=== PATIENT | female | born 1935 | race Caucasian/White ===

== ENCOUNTER 2020-02-07 13:27 | Inpatient (IN) | payer MEDICARE, OTHER ==
[~2020-02-07] VITALS: Ht 154.9 cm; Wt 79.4 kg
[2020-02-08] MEDS ORDERED: GLUCERNA 1.2 1000ML LIQUID GT PRN (16:45)
[2020-02-08] MEDS ORDERED: BISA10SU61 RC (17:07)
[2020-02-08] MEDS ORDERED: OXYC-133 PO (17:07)
[2020-02-08] MEDS ORDERED: CALC1TAB91 GT (17:07)
[2020-02-08] MEDS ORDERED: ACET-2154 GT (17:07)
[2020-02-08] MEDS ORDERED: PANT40TA2 GT (17:07)
[2020-02-08] MEDS ORDERED: POLY17PO4 GT (17:07)
[2020-02-08] MEDS ORDERED: ASPI81TA31 GT (17:07)
[2020-02-08] MEDS ORDERED: MULT-594 GT (17:07)
[2020-02-08] MEDS ORDERED: MAGN400O6 GT (17:07)
[2020-02-08] MEDS ORDERED: IPRA0.2S48 NEB (17:07)
[2020-02-08] MEDS ORDERED: LOSA50TA39 GT (17:07)
[2020-02-08] MEDS ORDERED: NA P133E RC (17:07)
[2020-02-08] MEDS ORDERED: ATOR40TA GT (17:07)
[2020-02-08] MEDS ORDERED: OXYC-128 GT (17:07)
[2020-02-08] MEDS ORDERED: FERR325T28 GT (17:07)
[2020-02-08] MEDS ORDERED: CLOP75TA15 GT (17:07)
[2020-02-08] MEDS ORDERED: CYAN-51 GT (17:07)
[2020-02-08] MEDS ORDERED: FURO-151 GT (17:07)
[2020-02-08] MEDS ORDERED: POTA10CA43 GT (17:07)
[2020-02-08] MEDS ORDERED: NITR0.4T SL (17:08)
[2020-02-08 18:01] VITALS: BP 146/57
[2020-02-08] MEDS ORDERED: DEXTROSE 50% 50 ML DISP.SYRIN IV PRN (19:15)
[2020-02-08] MEDS: BLOOD SUGAR DIAGNOSTIC 1 EACH STRIP VI SCH (20:33)
[2020-02-08] MEDS: INSULIN REGULAR, HUMAN 300 UNIT/3 ML VIAL SQ PRN (20:39)
[2020-02-08 21:22] VITALS: BP 144/69
[2020-02-08] MEDS ORDERED: FLEET ENEMA 133 ML BOTTLE RC PRN (22:45)
[2020-02-08] MEDS ORDERED: ACETAMINOPHEN 325 MG TABLET GT PRN (22:45)
[2020-02-08] MEDS ORDERED: BISACODYL 10 MG SUPP.RECT RC PRN (22:45)
[2020-02-08] MEDS ORDERED: NITROGLYCERIN 0.4 MG/TAB BOTTLE SL PRN (22:45)
[2020-02-08] MEDS ORDERED: MAGNESIUM HYDROXIDE 30 ML LIQUID UDC GT PRN (22:45)
[2020-02-08] MEDS ORDERED: IPRATROPIUM BROMIDE 0.5 MG/2.5 ML NEBU NEB PRN (22:45)
[2020-02-08] MEDS ORDERED: OXYCODONE HCL 5 MG TABLET GT PRN (23:30)
[2020-02-08] MEDS ORDERED: OXYCODONE/APAP 5-325 MG TABLET GT PRN (23:30)
[2020-02-09 05:18] VITALS: BP 136/50
[2020-02-09 06:20] LABS: BASOPHILS % (AUTO) 0.8 % (0.0-2.0); EOSINOPHILS # (AUTO) 0.2 K/uL (0.0-0.7); EOSINOPHILS % (AUTO) 4.4 % (0.0-7.0); HEMATOCRIT 29.5 % (31.2-41.9); HEMOGLOBIN 9.9 g/dL (10.9-14.3); LYMPHOCYTES # (AUTO) 1.5 K/uL (20.0-40.0); LYMPHOCYTES % (AUTO) 30.8 % (20.5-51.5); MEAN CORPUSCULAR HEMOGLOBIN 27.4 uug (24.7-32.8); MEAN CORPUSCULAR HGB CONC 34 g/dL (32.3-35.6); MEAN CORPUSCULAR VOLUME 81.7 fL (75.5-95.3); MONOCYTES # (AUTO) 0.4 K/uL (2.0-10.0); MONOCYTES % (AUTO) 7.8 % (0.0-11.0); NEUTROPHILS # (AUTO) 2.7 K/uL (1.8-8.9); NEUTROPHILS % (AUTO) 56.2 % (38.5-71.5); PLATELET COUNT (AUTO) 153 K/uL (179-408); RED BLOOD CELL COUNT(AUTO) 3.62 MIL/uL (3.63-4.92); WHITE BLOOD COUNT (AUTO) 4.9 K/uL (3.8-11.8)
[2020-02-09] MEDS: BLOOD SUGAR DIAGNOSTIC 1 EACH STRIP VI SCH ×2 (06:27→11:30)
[2020-02-09 06:40] LABS: THYROID STIMULATING HORMONE 0.676 mIU/mL (0.358-3.740)
[2020-02-09 06:47] LABS: BILIRUBIN,TOTAL 0.3 mg/dL (0.2-1.0); CREATININE 0.7 mg/dL (0.6-1.3); MAGNESIUM 2.2 mg/dL (1.8-2.4); PHOSPHOROUS 4.6 mg/dL (2.5-4.9); POTASSIUM 3.9 mmol/L (3.5-5.1); TOTAL PROTEIN, SERUM 6.3 g/dL (6.4-8.2)
[2020-02-09 07:50] VITALS: BP 146/58
[2020-02-09] MEDS ORDERED: GLUCERNA 1.2 1000ML LIQUID GT PRN (08:07)
[2020-02-09] MEDS: INSULIN REGULAR, HUMAN 300 UNIT/3 ML VIAL SQ PRN (08:07)
[2020-02-09] MEDS ORDERED: CYANOCOBALAMIN 1,000 MCG TABLET GT SCH (09:00)
[2020-02-09] MEDS ORDERED: MIRALAX 17 GM POWD.PACK GT SCH (09:00)
[2020-02-09] MEDS ORDERED: FOLIC ACID 1 MG TABLET GT SCH (09:00)
[2020-02-09] MEDS ORDERED: PANTOPRAZOLE ORAL SUSPENSION 40 MG SUSPDR.PKT GT SCH (09:00)
[2020-02-09] MEDS ORDERED: CHOLECALCIFEROL 400 UNITS TABLET GT SCH (09:00)
[2020-02-09] MEDS ORDERED: MULTIVITAMINS,THERAPEUTIC TABLET GT SCH (09:00)
[2020-02-09] MEDS ORDERED: FUROSEMIDE 40 MG TABLET GT SCH (09:00)
[2020-02-09] MEDS ORDERED: LOSARTAN POTASSIUM 50 MG TABLET GT SCH (09:00)
[2020-02-09] MEDS ORDERED: ASPIRIN 81 MG TAB.CHEW GT SCH (09:00)
[2020-02-09] MEDS ORDERED: CALCIUM CARB/VITAMIN D 500MG-200UNITS TABLET GT SCH (09:00)
[2020-02-09] MEDS ORDERED: CLOPIDOGREL 75 MG TABLET GT SCH (09:00)
[2020-02-09] MEDS ORDERED: POTASSIUM CHLORIDE 10 MEQ TAB.PRT.SR XX SCH (09:00)
[2020-02-09] MEDS ORDERED: POTASSIUM CHLORIDE 20 MEQ POWDER PACKET GT SCH (09:00)
[2020-02-09] MEDS ORDERED: ENOXAPARIN SODIUM 40 MG/0.4 ML DISP.SYRIN SQ SCH (12:30)
[2020-02-09 15:12] VITALS: BP 123/46
[2020-02-09] MEDS ORDERED: CHOL10002 GT (15:51)
[2020-02-09] MEDS ORDERED: Glucerna 1.2 GT (15:51)
[2020-02-09] MEDS ORDERED: ENOX40DI SQ (15:51)
[2020-02-09] MEDS ORDERED: Insulin Glargine,Hum SQ (15:51)
[2020-02-09] MEDS ORDERED: OXYC5TAB3 GT (15:51)
[2020-02-09] MEDS ORDERED: Blood Sugar Diagnostic VI (15:51)
[2020-02-09] MEDS ORDERED: INSU100V28 SQ (15:51)
[2020-02-09] MEDS ORDERED: Folic Acid GT (15:51)
[2020-02-09] MEDS ORDERED: CHOLECALCIFEROL 1,000 UNIT TABLET GT SCH (17:00)
[2020-02-09] MEDS ORDERED: Z GUARD REMEDY PASTE 57 GM TUBE TOP SCH (21:00)
[2020-02-09] MEDS ORDERED: ATORVASTATIN 40 MG TABLET GT SCH (21:00)
[2020-02-09] MEDS ORDERED: INSULIN GLARGINE,HUM 300 UNITS/3 ML CARTRIDGE SQ SCH (21:00)
[2020-02-14] MEDS ORDERED: Glucerna 1.2 GT (12:17)
[2020-02-14] MEDS ORDERED: INSU100V28 SQ (12:17)
[2020-02-14] MEDS ORDERED: Insulin Glargine,Hum SQ (12:17)
[2020-02-14] MEDS ORDERED: FERR300L GT (12:17)
[2020-02-14] MEDS ORDERED: Folic Acid GT (12:17)
== END 2020-02-09 16:15 | disposition short-term general hospital (02) | DRG 57 ==
PROVIDERS: ADMIT Physical Medicine & Rehabilitation Pain Medicine; ATTEND Physical Medicine & Rehabilitation Pain Medicine
DX: I69.351 Hemiplegia and hemiparesis following cerebral infarction affecting right dominant side (principal); E11.9 Type 2 diabetes mellitus without complications; E78.5 Hyperlipidemia, unspecified; I69.391 Dysphagia following cerebral infarction; I69.320 Aphasia following cerebral infarction; R13.10 Dysphagia, unspecified; I10 Essential (primary) hypertension; I25.10 Atherosclerotic heart disease of native coronary artery without angina pectoris; K21.9 Gastro-esophageal reflux disease without esophagitis; Z20.828 Contact with and (suspected) exposure to other viral communicable diseases; R53.1 Weakness
CPT/HCPCS: 36415; 70030-TC; 83735; 84100; 84443; 85025; 85610; J1650; J1815

== ENCOUNTER 2020-02-09 16:35 | Inpatient (IN) | payer MEDICARE, OTHER ==
[~2020-02-09] VITALS: Ht 154.9 cm; Wt 79.4 kg
[~2020-02-09 16:35] MED LIST: ACET-2154 GT; ASPI81TA31 GT; ATOR40TA GT; BISA10SU61 RC; Blood Sugar Diagnostic VI; CALC1TAB91 GT; CHOL10002 GT; CLOP75TA15 GT; CYAN-51 GT; ENOX40DI SQ; FERR325T28 GT; FURO-151 GT; Folic Acid GT; Glucerna 1.2 GT; INSU100V28 SQ; IPRA0.2S48 NEB; Insulin Glargine,Hum SQ; LOSA50TA39 GT; MAGN400O6 GT; MULT-594 GT; NA P133E RC; NITR0.4T SL; OXYC-128 GT; OXYC-133 PO; OXYC5TAB3 GT; PANT40TA2 GT; POLY17PO4 GT; POTA10CA43 GT
--- NOTE | 2020-02-09 16:50 | NUR ---
Received patient from ARU, admitting to telemetry. Belongings list done and initial vital signs taken. Telemetry leads placed. Patient shows no sign of distress. Patient is aphasic. Patient is also on covid isolation. Safety precautions in place with call lights and belongings within reach. Will continue to monitor.
[2020-02-09] MEDS ORDERED: ONDANSETRON 4 MG/2 ML VIAL IV PRN (17:00)
[2020-02-09] MEDS ORDERED: ACETAMINOPHEN 650 MG/20.3 ML LIQUID UDC GT PRN (17:00)
[2020-02-09] MEDS ORDERED: ALBUTEROL SULFATE 8 GM HFA.AER.AD IH PRN (17:00)
[2020-02-09] MEDS ORDERED: ACETAMINOPHEN 650 MG SUPP.RECT RC PRN (17:00)
[2020-02-09] MEDS ORDERED: NITROGLYCERIN 0.4 MG/TAB BOTTLE SL PRN (17:15)
[2020-02-09] MEDS ORDERED: DEXTROSE 50% 50 ML DISP.SYRIN IV PRN (17:15)
[2020-02-09] MEDS ORDERED: BISACODYL 10 MG SUPP.RECT RC PRN (17:15)
[2020-02-09] MEDS ORDERED: FLEET ENEMA 133 ML BOTTLE RC PRN (17:15)
[2020-02-09] MEDS ORDERED: MAGNESIUM HYDROXIDE 30 ML LIQUID UDC GT PRN (17:15)
[2020-02-09 17:43] LABS: BASOPHILS % (AUTO) 0.8 % (0.0-2.0); EOSINOPHILS # (AUTO) 0.2 K/uL (0.0-0.7); HEMOGLOBIN 10.4 g/dL (10.9-14.3); LYMPHOCYTES # (AUTO) 1.9 K/uL (20.0-40.0); LYMPHOCYTES % (AUTO) 33.1 % (20.5-51.5); MEAN CORPUSCULAR HEMOGLOBIN 26.7 uug (24.7-32.8); MEAN CORPUSCULAR HGB CONC 32 g/dL (32.3-35.6); MEAN CORPUSCULAR VOLUME 82.3 fL (75.5-95.3); MONOCYTES # (AUTO) 0.5 K/uL (2.0-10.0); MONOCYTES % (AUTO) 8.4 % (0.0-11.0); NEUTROPHILS # (AUTO) 3.2 K/uL (1.8-8.9); NEUTROPHILS % (AUTO) 54.7 % (38.5-71.5); PLATELET COUNT (AUTO) 152 K/uL (179-408); RED BLOOD CELL COUNT(AUTO) 3.89 MIL/uL (3.63-4.92); WHITE BLOOD COUNT (AUTO) 5.8 K/uL (3.8-11.8)
[2020-02-09 17:52] LABS: CREATININE 0.7 mg/dL (0.6-1.3); POTASSIUM 3.8 mmol/L (3.5-5.1)
[2020-02-09 18:10] LABS: BILIRUBIN,TOTAL 0.5 mg/dL (0.2-1.0); TOTAL PROTEIN, SERUM 6.6 g/dL (6.4-8.2)
[2020-02-09] MEDS: BLOOD SUGAR DIAGNOSTIC 1 EACH STRIP VI SCH (18:16)
[2020-02-09] MEDS: INSULIN REGULAR, HUMAN 300 UNIT/3 ML VIAL SQ PRN (18:34)
--- NOTE | 2020-02-09 19:02 | NUR ---
Patient is resting in bed. No sign of distress noted. Gave all medications as ordered. Safety precautions are in place with call light and belongings within reach. Will endorse to oncoming nurse.
--- NOTE | 2020-02-09 19:25 | NUR ---
PT IN BED AWAKE. PT IS APHASIC. NO S/S OF ACUTE DISTRESS OR PAIN NOTED AT THIS TIME. GTUBE IS INTACT WITH GLUCERNA 1.2 RUNNING AT 60CC. V/S STABLE ON ROOM AIR. NSR ON TELE MONITOR. PT IS ON COVID ISOLATION. SAFETY MEASURES IN PLACE. BED LOW AND LOCKED IN POSITION. CALL LIGHT WITHIN REACH. WILL CONTINUE WITH THE PLAN OF CARE.
[2020-02-09 20:06] VITALS: BP 104/38
[2020-02-09] MEDS: ATORVASTATIN 40 MG TABLET GT SCH (20:51)
[2020-02-09] MEDS: INSULIN GLARGINE,HUM 300 UNITS/3 ML CARTRIDGE SQ SCH (20:52)
[2020-02-10] MEDS: BLOOD SUGAR DIAGNOSTIC 1 EACH STRIP VI SCH ×4 (00:26→17:03)
[2020-02-10 00:32] VITALS: BP 128/44
[2020-02-10] MEDS: INSULIN REGULAR, HUMAN 300 UNIT/3 ML VIAL SQ PRN ×4 (00:36→17:08)
[2020-02-10 04:08] VITALS: BP 126/39
[2020-02-10] MEDS: CHOLECALCIFEROL 1,000 UNIT TABLET GT SCH ×2 (08:24→16:28)
[2020-02-10] MEDS: ASPIRIN 81 MG TAB.CHEW GT SCH (08:24)
[2020-02-10] MEDS: FUROSEMIDE 40 MG TABLET GT SCH (08:24)
[2020-02-10] MEDS: FOLIC ACID 1 MG TABLET GT SCH (08:24)
[2020-02-10] MEDS: FERROUS SULFATE 325 MG TABEC PO SCH (08:24)
[2020-02-10] MEDS: CLOPIDOGREL 75 MG TABLET GT SCH (08:24)
[2020-02-10] MEDS: ENOXAPARIN SODIUM 40 MG/0.4 ML DISP.SYRIN SQ SCH (08:25)
[2020-02-10] MEDS: CYANOCOBALAMIN 1,000 MCG TABLET GT SCH (08:25)
[2020-02-10] MEDS: LOSARTAN POTASSIUM 50 MG TABLET GT SCH (08:25)
[2020-02-10] MEDS: MULTIVITAMINS,THERAPEUTIC TABLET PO SCH (08:28)
[2020-02-10] MEDS: CALCIUM CARB/VITAMIN D 500MG-200UNITS TABLET GT SCH ×2 (09:00→16:28)
[2020-02-10] MEDS ORDERED: CALCIUM CARB/VITAMIN D 500MG-200UNITS TABLET GT SCH (09:00)
[2020-02-10] MEDS ORDERED: CALCIUM CARBONATE 500 MG TABLET GT SCH (11:00)
[2020-02-10] MEDS: GLUCERNA 1.2 1000ML LIQUID GT PRN (11:24)
[2020-02-10 12:00] VITALS: BP 118/63
--- NOTE | 2020-02-10 14:38 | NUR ---
Pt stable throughout the shift. Comfort care and needs attended. Repositioned for comfort. V/S stable on room air. NSR on tele monitor. Tube feeding, Glucerna 1.2 at 60 cc, tolerating well. Isolation and fall precaution maintained. Safety measures in place. Call light within reach. Will endorse to oncoming nurse accordingly.
[2020-02-10 15:58] VITALS: BP 125/57
[2020-02-10] MEDS: ATORVASTATIN 40 MG TABLET GT SCH (20:24)
[2020-02-10 20:32] VITALS: BP 107/55
--- NOTE | 2020-02-10 21:25 | NUR ---
patient received lying in bed awake and lying comfortable in bed. aphasic and unable to verbalize needs. assessment of patient using FLACC scale, no pain. NPO noted and on Gtube patent and intact. no residual. v/s stable. no s/s of acute distress noted. isolation for COVID positive. BS stable and no coverage administered tonight, WNL. medications administered and tolerated well. will continue to monitor and assess throughout the night.
[2020-02-10] MEDS: INSULIN GLARGINE,HUM 300 UNITS/3 ML CARTRIDGE SQ SCH (22:20)
[2020-02-11] MEDS: BLOOD SUGAR DIAGNOSTIC 1 EACH STRIP VI SCH ×4 (00:32→17:06)
[2020-02-11 00:47] VITALS: BP 109/74
[2020-02-11] MEDS: GLUCERNA 1.2 1000ML LIQUID GT PRN (05:48)
[2020-02-11 05:51] VITALS: BP 130/53
[2020-02-11] MEDS: INSULIN REGULAR, HUMAN 300 UNIT/3 ML VIAL SQ PRN ×3 (06:16→17:21)
--- NOTE | 2020-02-11 08:00 | NUR ---
RECEIVED PATIENT IN BED WITH EYES CLOSED OPENS EYES WHEN TOUCHED BUT DID NOT MAKE ANY EYE CONTACT AND UNABLE TO VERBAL RESPOND ALL NEEDS ANTICIPATED AND SATISFIED ON ROOM AIR WITH NO SHORTNESS OF BREATH TELE IS SR REMAIN ON GT FEEDINGS ORDERED WITH NO GASTRIC RESIDUAL AT THIS TIME NO S/S OF HYPO/HYPERGLYCEMIC REACTIONS REMAIN ON COVID ISOLATION AND PRECAUTION REPOSITIONED Q2H MADE COMFORTABLE WILL CONTINUE TO OBSERVE.
[2020-02-11] MEDS: ENOXAPARIN SODIUM 40 MG/0.4 ML DISP.SYRIN SQ SCH (08:24)
[2020-02-11] MEDS: MULTIVITAMINS,THERAPEUTIC TABLET PO SCH (08:35)
[2020-02-11] MEDS: ASPIRIN 81 MG TAB.CHEW GT SCH (08:35)
[2020-02-11] MEDS: FOLIC ACID 1 MG TABLET GT SCH (08:35)
[2020-02-11] MEDS: CHOLECALCIFEROL 1,000 UNIT TABLET GT SCH ×2 (08:35→16:02)
[2020-02-11] MEDS: CLOPIDOGREL 75 MG TABLET GT SCH (08:35)
[2020-02-11] MEDS: FUROSEMIDE 40 MG TABLET GT SCH (08:35)
[2020-02-11] MEDS: CALCIUM CARB/VITAMIN D 500MG-200UNITS TABLET GT SCH ×2 (08:36→16:03)
[2020-02-11] MEDS: FERROUS SULFATE 325 MG TABEC PO SCH (08:36)
[2020-02-11] MEDS: LOSARTAN POTASSIUM 50 MG TABLET GT SCH (08:37)
[2020-02-11] MEDS: CYANOCOBALAMIN 1,000 MCG TABLET GT SCH (10:35)
[2020-02-11 11:50] VITALS: BP 94/43
--- NOTE | 2020-02-11 14:41 | NUR ---
PATIENTS SON OPN ROOM AND CHARTING WITH PATIENT SHE IS ALERT AND SEEMS TO BE UNDERSTANDING THEY TALK TO HER IN HER OTHER LANGUAGE SHE IS NODDING HER HEAD AGREEING TO WHAT THEY WERE SAYING TO HER DID GET EMOTIONAL FOR A MINUTE AND WAS ABLE TO WAVE GOOD BYE TO THEM AT THE END OF THE ZOOM VISIT.CONTINUE TO TOLERATE HER GT FEEDINGS ORDERED WITH HOB UP MADE COMFORTABLE WILL CONTINUE TO OBSERVE.
[2020-02-11 16:15] VITALS: BP 124/45
--- NOTE | 2020-02-11 18:00 | NUR ---
CONTINUE WITH GT FEEDINGS ORDERED TOLERATED WELL WITH NO GASTRIC RESIDUAL NOT IN DISTRESS AT THIS TIME
[2020-02-11 20:00] VITALS: BP 118/48
--- NOTE | 2020-02-11 20:12 | NUR ---
PATIENT PCR RESULT NEGATIVE,NOTIFY BRENDA DELEON NP. AND SAID ASK REHAB IF THEY WILL TAKE HER BACK. NOTIFY CHARGE NURSE.
[2020-02-11] MEDS: ATORVASTATIN 40 MG TABLET GT SCH (20:54)
[2020-02-11] MEDS: INSULIN GLARGINE,HUM 300 UNITS/3 ML CARTRIDGE SQ SCH (20:56)
[2020-02-12] MEDS: BLOOD SUGAR DIAGNOSTIC 1 EACH STRIP VI SCH ×4 (00:44→17:36)
[2020-02-12 01:17] VITALS: BP 120/47
[2020-02-12 04:50] VITALS: BP 133/47
[2020-02-12] MEDS: INSULIN REGULAR, HUMAN 300 UNIT/3 ML VIAL SQ PRN ×4 (06:04→22:39)
--- NOTE | 2020-02-12 06:42 | NUR ---
PATIENT AWAKE BUT WITH CONFUSION, NO SOB NO CHEST PAIN, ON GTF TOLERATE WELL NO RESIDUAL NOTED, REMAIN ON DROPLET PRECAUTION, NO S/S OF PAIN NOR DISCOMFORT, CONT TO MONITOR. V/S STABLE.
[2020-02-12] MEDS: ASPIRIN 81 MG TAB.CHEW GT SCH (09:58)
[2020-02-12] MEDS: FERROUS SULFATE 325 MG TABEC PO SCH (09:58)
[2020-02-12] MEDS: FOLIC ACID 1 MG TABLET GT SCH (09:58)
[2020-02-12] MEDS: MULTIVITAMINS,THERAPEUTIC TABLET PO SCH (09:58)
[2020-02-12] MEDS: CALCIUM CARB/VITAMIN D 500MG-200UNITS TABLET GT SCH ×2 (09:59→17:35)
[2020-02-12] MEDS: CHOLECALCIFEROL 1,000 UNIT TABLET GT SCH ×2 (09:59→17:35)
[2020-02-12] MEDS: CYANOCOBALAMIN 1,000 MCG TABLET GT SCH (09:59)
[2020-02-12] MEDS: CLOPIDOGREL 75 MG TABLET GT SCH (09:59)
[2020-02-12] MEDS: FUROSEMIDE 40 MG TABLET GT SCH (09:59)
[2020-02-12] MEDS: ENOXAPARIN SODIUM 40 MG/0.4 ML DISP.SYRIN SQ SCH (10:01)
[2020-02-12] MEDS: LOSARTAN POTASSIUM 50 MG TABLET GT SCH (10:30)
[2020-02-12 12:00] VITALS: BP 116/46
[2020-02-12 16:00] VITALS: BP 113/44
[2020-02-12 20:00] VITALS: BP 134/60
[2020-02-12] MEDS: ATORVASTATIN 40 MG TABLET GT SCH (22:11)
[2020-02-12] MEDS: INSULIN GLARGINE,HUM 300 UNITS/3 ML CARTRIDGE SQ SCH (22:38)
[2020-02-13] VITALS (7 sets, daily range): BP systolic 101–141; BP diastolic 45–71
[2020-02-13] MEDS: BLOOD SUGAR DIAGNOSTIC 1 EACH STRIP VI SCH ×4 (01:06→17:08)
[2020-02-13] MEDS: INSULIN REGULAR, HUMAN 300 UNIT/3 ML VIAL SQ PRN ×4 (01:08→15:52)
--- NOTE | 2020-02-13 06:32 | NUR ---
PATIENT AWAKE BUT NON VERBAL, NO S/S OF SOB NO S/S OF PAIN. ON GTF TOLERATE WELL, V/S STABLE, RA, REMAIN ON CONTACT/DROPLET PRECAUTION, CONT TO MONITOR.
[2020-02-13 07:08] LABS: BASOPHILS % (AUTO) 0.7 % (0.0-2.0); EOSINOPHILS # (AUTO) 0.3 K/uL (0.0-0.7); EOSINOPHILS % (AUTO) 5.3 % (0.0-7.0); HEMATOCRIT 33.2 % (31.2-41.9); HEMOGLOBIN 10.9 g/dL (10.9-14.3); LYMPHOCYTES # (AUTO) 1.3 K/uL (20.0-40.0); LYMPHOCYTES % (AUTO) 22.3 % (20.5-51.5); MEAN CORPUSCULAR HEMOGLOBIN 27.4 uug (24.7-32.8); MEAN CORPUSCULAR HGB CONC 33 g/dL (32.3-35.6); MEAN CORPUSCULAR VOLUME 83.2 fL (75.5-95.3); MONOCYTES # (AUTO) 0.5 K/uL (2.0-10.0); MONOCYTES % (AUTO) 7.6 % (0.0-11.0); NEUTROPHILS # (AUTO) 3.8 K/uL (1.8-8.9); NEUTROPHILS % (AUTO) 64.1 % (38.5-71.5); PLATELET COUNT (AUTO) 170 K/uL (179-408); RED BLOOD CELL COUNT(AUTO) 3.99 MIL/uL (3.63-4.92)
[2020-02-13] MEDS: MULTIVITAMINS,THERAPEUTIC TABLET PO SCH (08:11)
[2020-02-13] MEDS: FUROSEMIDE 40 MG TABLET GT SCH (08:11)
[2020-02-13] MEDS: FERROUS SULFATE 325 MG TABEC PO SCH (08:11)
[2020-02-13] MEDS: CALCIUM CARB/VITAMIN D 500MG-200UNITS TABLET GT SCH ×2 (08:11→16:38)
[2020-02-13] MEDS: CHOLECALCIFEROL 1,000 UNIT TABLET GT SCH ×2 (08:11→16:38)
[2020-02-13] MEDS: ASPIRIN 81 MG TAB.CHEW GT SCH (08:11)
[2020-02-13] MEDS: CLOPIDOGREL 75 MG TABLET GT SCH (08:11)
[2020-02-13] MEDS: FOLIC ACID 1 MG TABLET GT SCH (08:12)
[2020-02-13] MEDS: LOSARTAN POTASSIUM 50 MG TABLET GT SCH (08:12)
[2020-02-13 08:13] LABS: BILIRUBIN,DIRECT 0.1 mg/dL (0.0-0.2); BILIRUBIN,TOTAL 0.4 mg/dL (0.2-1.0); CREATININE 0.8 mg/dL (0.6-1.3); MAGNESIUM 2.2 mg/dL (1.8-2.4); PHOSPHOROUS 3.9 mg/dL (2.5-4.9); POTASSIUM 3.7 mmol/L (3.5-5.1); TOTAL PROTEIN, SERUM 6.9 g/dL (6.4-8.2)
[2020-02-13] MEDS: ENOXAPARIN SODIUM 40 MG/0.4 ML DISP.SYRIN SQ SCH (08:13)
[2020-02-13] MEDS: CYANOCOBALAMIN 1,000 MCG TABLET GT SCH (09:35)
[2020-02-13] MEDS: GLUCERNA 1.2 1000ML LIQUID GT PRN (13:07)
--- NOTE | 2020-02-13 19:34 | NUR ---
all the meds given through g-tube, endorsed to next shift accordingly
[2020-02-13] MEDS: ATORVASTATIN 40 MG TABLET GT SCH (20:43)
[2020-02-13] MEDS: INSULIN GLARGINE,HUM 300 UNITS/3 ML CARTRIDGE SQ SCH (22:38)
[2020-02-14 00:03] VITALS: BP 122/46
[2020-02-14] MEDS: BLOOD SUGAR DIAGNOSTIC 1 EACH STRIP VI SCH ×3 (00:50→12:25)
[2020-02-14] MEDS: INSULIN REGULAR, HUMAN 300 UNIT/3 ML VIAL SQ PRN ×3 (00:51→12:27)
--- NOTE | 2020-02-14 03:54 | NUR ---
patient resting comfortably. v/s stable. no s/s of acute distress noted at this time. NSR on tele monitor. safety precautions provided. bed in lowest position. side rails up x2, and bed alarm on. gtube patent and intact with Voice Assist running. all medications administered and tolerated well. will continue to monitor and assess.
[2020-02-14 04:00] VITALS: BP 125/59
[2020-02-14] MEDS: GLUCERNA 1.2 1000ML LIQUID GT PRN (05:00)
[2020-02-14] MEDS ORDERED: MULTIVITAMINS,THERAPEUTIC TABLET GT SCH (09:00)
[2020-02-14] MEDS ORDERED: FERROUS SULFATE 300 MG/5 ML LIQUID UDC GT SCH (09:00)
[2020-02-14] MEDS: FOLIC ACID 1 MG TABLET GT SCH (09:03)
[2020-02-14] MEDS: CHOLECALCIFEROL 1,000 UNIT TABLET GT SCH (09:03)
[2020-02-14] MEDS: FUROSEMIDE 40 MG TABLET GT SCH (09:03)
[2020-02-14] MEDS: CLOPIDOGREL 75 MG TABLET GT SCH (09:03)
[2020-02-14] MEDS: CALCIUM CARB/VITAMIN D 500MG-200UNITS TABLET GT SCH (09:03)
[2020-02-14] MEDS: CYANOCOBALAMIN 1,000 MCG TABLET GT SCH (09:03)
[2020-02-14] MEDS: ASPIRIN 81 MG TAB.CHEW GT SCH (09:03)
[2020-02-14] MEDS: ENOXAPARIN SODIUM 40 MG/0.4 ML DISP.SYRIN SQ SCH (09:04)
[2020-02-14] MEDS: LOSARTAN POTASSIUM 50 MG TABLET GT SCH (09:12)
[2020-02-14 09:13] LABS: BASOPHILS % (AUTO) 0.6 % (0.0-2.0); EOSINOPHILS # (AUTO) 0.2 K/uL (0.0-0.7); EOSINOPHILS % (AUTO) 3.9 % (0.0-7.0); HEMATOCRIT 33.9 % (31.2-41.9); HEMOGLOBIN 11.1 g/dL (10.9-14.3); LYMPHOCYTES # (AUTO) 1.3 K/uL (20.0-40.0); LYMPHOCYTES % (AUTO) 21.8 % (20.5-51.5); MEAN CORPUSCULAR HEMOGLOBIN 27.1 uug (24.7-32.8); MEAN CORPUSCULAR HGB CONC 33 g/dL (32.3-35.6); MEAN CORPUSCULAR VOLUME 82.9 fL (75.5-95.3); MONOCYTES # (AUTO) 0.4 K/uL (2.0-10.0); MONOCYTES % (AUTO) 6.4 % (0.0-11.0); NEUTROPHILS # (AUTO) 4.1 K/uL (1.8-8.9); NEUTROPHILS % (AUTO) 67.3 % (38.5-71.5); PLATELET COUNT (AUTO) 171 K/uL (179-408); RED BLOOD CELL COUNT(AUTO) 4.09 MIL/uL (3.63-4.92)
[2020-02-14 09:15] LABS: CREATININE 0.8 mg/dL (0.6-1.3); MAGNESIUM 2.2 mg/dL (1.8-2.4); PHOSPHOROUS 3.9 mg/dL (2.5-4.9); POTASSIUM 3.5 mmol/L (3.5-5.1)
[2020-02-14 12:00] VITALS: BP 137/45
[2020-02-14] MEDS ORDERED: INSU100V28 SQ (12:17)
[2020-02-14] MEDS ORDERED: Folic Acid GT (12:17)
[2020-02-14] MEDS ORDERED: Insulin Glargine,Hum SQ (12:17)
[2020-02-14] MEDS ORDERED: Glucerna 1.2 GT (12:17)
[2020-02-14] MEDS ORDERED: FERR300L GT (12:17)
--- NOTE | 2020-02-14 13:15 | NUR ---
Discharge note: Received pt at 0700, A/Ox1 responsive to verbal and tactile stimuli. All due medications given as ordered with no ASE noted. No s/sx of hypo/hyperglycemia this shift. Tolerating feeding well. Received COVID-19 negative result and notified attending ROUGE MILLER. Received order for pt. to be transferred to [facility] for generalized weakness 2/2 CVA. Orders noted and carried out accordingly. R/P Kian aware that family to be discharge to ARU, r/p amenable. No further concerns from responsible alliance party. Skin assessment revealed no new skin condition. Pt. unable to sign discharge papers due to generalized weakness, 2 RN signed pt d/c forms. All pt. belongings to be transferred with pt. upon discharge. Pt. discharge from [facility] at 1315.
== END 2020-02-14 13:15 | DRG 641 ==
LOC: TELE3 16:35 → MEDSURG3 02-14 07:00
PROVIDERS: ADMIT Nurse Practitioner Acute Care; ATTEND Nurse Practitioner Acute Care
DX: E86.0 Dehydration (principal); I69.351 Hemiplegia and hemiparesis following cerebral infarction affecting right dominant side; I69.391 Dysphagia following cerebral infarction; I69.320 Aphasia following cerebral infarction; R13.10 Dysphagia, unspecified; E78.5 Hyperlipidemia, unspecified; D69.6 Thrombocytopenia, unspecified; E11.9 Type 2 diabetes mellitus without complications; I10 Essential (primary) hypertension; K21.9 Gastro-esophageal reflux disease without esophagitis; R13.0 Aphagia; Z79.4 Long term (current) use of insulin; Z20.828 Contact with and (suspected) exposure to other viral communicable diseases
CPT/HCPCS: 36415; 71045; 83605; 83615; 83735; 84100; 85025; 86140; G0378; J1650; J1815; J3535; U0003

== ENCOUNTER 2020-02-14 13:48 | Inpatient (IN) | payer MEDICARE, OTHER ==
[~2020-02-14] VITALS: Ht 154.9 cm; Wt 75.4 kg
[~2020-02-14 13:48] MED LIST changes: +FERR300L GT; -IPRA0.2S48 NEB; -OXYC-128 GT; -OXYC-133 PO; -PANT40TA2 GT; -POLY17PO4 GT
--- NOTE | 2020-02-14 14:00 | NUR ---
Admitted a 84 years old female pt under Dr. Espitia for [facility] at 1348. Pt. transferred from [facility] to [facility]. Primary DX: CVA. Pt. A/Ox1 confused but responsive to verbal and tactile stimuli. Pt. oriented to unit and staff. All belongings at bedside. Dr. Espitia and Lore KELLY aware of pt. admission, orders to admit and med recon completed. Initial skin assessment completed, no pressure injury/skin issues. Safety measures in place. All pt. needs attended and met. Call light and all frequently used items within pt. reach. Addendum: 02/14/20 at 1815 by DONALD GARCIA RN No changes during the remainder of shift. Pt. tolerating tube feeding well. Will endorse to oncoming shift accordingly.
[2020-02-14] MEDS ORDERED: INSULIN REGULAR, HUMAN 300 UNIT/3 ML VIAL SQ PRN (15:30)
[2020-02-14] MEDS ORDERED: BISACODYL 10 MG SUPP.RECT RC PRN (15:30)
[2020-02-14 16:00] VITALS: BP 121/64
[2020-02-14] MEDS: CHOLECALCIFEROL 1,000 UNIT TABLET GT SCH (16:31)
[2020-02-14] MEDS: CALCIUM CARB/VITAMIN D 500MG-200UNITS TABLET GT SCH (16:31)
[2020-02-14] MEDS ORDERED: DEXTROSE 50% 50 ML DISP.SYRIN IV PRN (17:15)
[2020-02-14] MEDS: BLOOD SUGAR DIAGNOSTIC 1 EACH STRIP VI SCH (17:28)
[2020-02-14] MEDS: INSULIN REGULAR, HUMAN 300 UNIT/3 ML VIAL SQ PRN (17:29)
[2020-02-14] MEDS: GLUCERNA 1.2 1000ML LIQUID GT PRN (17:30)
[2020-02-14 20:31] VITALS: BP 134/60
[2020-02-14] MEDS: ATORVASTATIN 40 MG TABLET GT SCH (20:40)
[2020-02-14] MEDS: INSULIN GLARGINE,HUM 300 UNITS/3 ML CARTRIDGE SQ SCH (20:49)
[2020-02-14] MEDS ORDERED: INSULIN GLARGINE,HUM 300 UNITS/3 ML CARTRIDGE SQ SCH (21:00)
[2020-02-15] MEDS: BLOOD SUGAR DIAGNOSTIC 1 EACH STRIP VI SCH ×5 (00:03→23:15)
[2020-02-15] MEDS: INSULIN REGULAR, HUMAN 300 UNIT/3 ML VIAL SQ PRN ×4 (00:08→23:19)
[2020-02-15 04:33] VITALS: BP 145/55
[2020-02-15] MEDS ORDERED: FERROUS SULFATE 325 MG TABEC PO SCH (09:00)
[2020-02-15] MEDS ORDERED: MULTIVITAMINS,THERAPEUTIC TABLET GT SCH (09:00)
[2020-02-15] MEDS ORDERED: FOLIC ACID 1 MG TABLET PO SCH (09:00)
[2020-02-15] MEDS: ENOXAPARIN SODIUM 40 MG/0.4 ML DISP.SYRIN SQ SCH (09:40)
[2020-02-15] MEDS: FUROSEMIDE 40 MG TABLET GT SCH (09:41)
[2020-02-15] MEDS: CLOPIDOGREL 75 MG TABLET GT SCH (09:41)
[2020-02-15] MEDS: CHOLECALCIFEROL 1,000 UNIT TABLET GT SCH ×2 (09:41→16:41)
[2020-02-15] MEDS: CALCIUM CARB/VITAMIN D 500MG-200UNITS TABLET GT SCH ×2 (09:41→16:41)
[2020-02-15] MEDS: ASPIRIN 81 MG TAB.CHEW GT SCH (09:41)
[2020-02-15] MEDS: FERROUS SULFATE 300 MG/5 ML LIQUID UDC GT SCH (09:42)
[2020-02-15] MEDS: CYANOCOBALAMIN 1,000 MCG TABLET GT SCH (09:42)
[2020-02-15] MEDS: LOSARTAN POTASSIUM 50 MG TABLET GT SCH (09:44)
[2020-02-15] MEDS: MULTIVITAMINS,THERAPEUTIC TABLET GT SCH (09:50)
[2020-02-15 11:44] VITALS: BP 181/55
[2020-02-15 12:59] VITALS: BP 162/70
[2020-02-15] MEDS: GLUCERNA 1.2 1000ML LIQUID GT PRN (14:55)
--- NOTE | 2020-02-15 15:40 | NUR ---
Clerical Administrator Note: SW provided patients sonKian ([phone]), with the following caregiving resources: [facility]; ([phone]), [facility]; ([phone]), [facility]; ([phone]). utility maintenance worker will continue to remain available to patient and provide ongoing supportive counseling and assess for any psychosocial needs. utility maintenance worker will encourage patient to comply with ARU goals of care. Cellophane Worker met with patient informed about the importance of stroke. utility maintenance worker provided stroke referrals such as: Stroke Family Warmline at (8-541-0-STROKE) and Caring for a stroke survivor ( ). utility maintenance worker also educated patient on the signs of Stroke and to immediately call 911. Cellophane Worker provided patient with a stroke educational packet with information such as; Dietary food, what stroke is, risks, emotional support, finding support, medical management, and effects of stroke.
[2020-02-15 15:47] VITALS: BP 127/57
[2020-02-15 20:00] VITALS: BP 149/59
[2020-02-15] MEDS: ATORVASTATIN 40 MG TABLET GT SCH (20:02)
[2020-02-15] MEDS: INSULIN GLARGINE,HUM 300 UNITS/3 ML CARTRIDGE SQ SCH (20:11)
[2020-02-16] MEDS: BLOOD SUGAR DIAGNOSTIC 1 EACH STRIP VI SCH ×4 (05:14→23:48)
[2020-02-16] MEDS: INSULIN REGULAR, HUMAN 300 UNIT/3 ML VIAL SQ PRN ×3 (05:15→23:52)
[2020-02-16 05:23] VITALS: BP 129/50
[2020-02-16 08:10] VITALS: BP 122/51
[2020-02-16] MEDS ORDERED: MULTIVITAMINS,THERAPEUTIC TABLET GT SCH (09:00)
[2020-02-16] MEDS: LOSARTAN POTASSIUM 50 MG TABLET GT SCH (09:49)
[2020-02-16] MEDS: MULTIVITAMINS,THERAPEUTIC TABLET GT SCH (09:49)
[2020-02-16] MEDS: FUROSEMIDE 40 MG TABLET GT SCH (09:49)
[2020-02-16] MEDS: FERROUS SULFATE 300 MG/5 ML LIQUID UDC GT SCH (09:49)
[2020-02-16] MEDS: CLOPIDOGREL 75 MG TABLET GT SCH (09:49)
[2020-02-16] MEDS: CHOLECALCIFEROL 1,000 UNIT TABLET GT SCH ×2 (09:49→17:51)
[2020-02-16] MEDS: ASPIRIN 81 MG TAB.CHEW GT SCH (09:50)
[2020-02-16] MEDS: CYANOCOBALAMIN 1,000 MCG TABLET GT SCH (09:50)
[2020-02-16] MEDS: ENOXAPARIN SODIUM 40 MG/0.4 ML DISP.SYRIN SQ SCH (09:50)
[2020-02-16] MEDS: CALCIUM CARB/VITAMIN D 500MG-200UNITS TABLET GT SCH ×2 (09:50→17:51)
[2020-02-16] MEDS: FOLIC ACID 1 MG TABLET GT SCH (09:50)
[2020-02-16 15:39] VITALS: BP 128/62
[2020-02-16] MEDS: GLUCERNA 1.2 1000ML LIQUID GT PRN (15:56)
[2020-02-16 20:00] VITALS: BP 134/51
[2020-02-16] MEDS: ATORVASTATIN 40 MG TABLET GT SCH (20:40)
[2020-02-16] MEDS: INSULIN GLARGINE,HUM 300 UNITS/3 ML CARTRIDGE SQ SCH (20:45)
[2020-02-17] VITALS: BP 153/79
[2020-02-17 04:59] VITALS: BP 126/49
[2020-02-17] MEDS: BLOOD SUGAR DIAGNOSTIC 1 EACH STRIP VI SCH ×4 (05:45→23:17)
[2020-02-17] MEDS: INSULIN REGULAR, HUMAN 300 UNIT/3 ML VIAL SQ PRN ×4 (05:46→23:20)
--- NOTE | 2020-02-17 06:44 | NUR ---
Shift End Report: No significant event reported all night. Continue current rehab plan of care. Vs stable.
[2020-02-17 08:00] VITALS: BP 141/47
[2020-02-17] MEDS: ASPIRIN 81 MG TAB.CHEW GT SCH (08:19)
[2020-02-17] MEDS: LOSARTAN POTASSIUM 50 MG TABLET GT SCH (08:20)
[2020-02-17] MEDS: MULTIVITAMINS,THERAPEUTIC TABLET GT SCH (08:20)
[2020-02-17] MEDS: CYANOCOBALAMIN 1,000 MCG TABLET GT SCH (08:20)
[2020-02-17] MEDS: CALCIUM CARB/VITAMIN D 500MG-200UNITS TABLET GT SCH ×2 (08:20→16:20)
[2020-02-17] MEDS: FERROUS SULFATE 300 MG/5 ML LIQUID UDC GT SCH (08:20)
[2020-02-17] MEDS: CHOLECALCIFEROL 1,000 UNIT TABLET GT SCH ×2 (08:20→16:20)
[2020-02-17] MEDS: CLOPIDOGREL 75 MG TABLET GT SCH (08:20)
[2020-02-17] MEDS: FOLIC ACID 1 MG TABLET GT SCH (08:20)
[2020-02-17] MEDS: FUROSEMIDE 40 MG TABLET GT SCH (08:20)
[2020-02-17] MEDS: ENOXAPARIN SODIUM 40 MG/0.4 ML DISP.SYRIN SQ SCH (08:36)
--- NOTE | 2020-02-17 13:42 | NUR ---
INDIVIDUALIZED PLAN OF CARE
[2020-02-17] MEDS: GLUCERNA 1.2 1000ML LIQUID GT PRN (15:12)
[2020-02-17 15:54] VITALS: BP 130/62
[2020-02-17 20:00] VITALS: BP 134/50
[2020-02-17] MEDS: ATORVASTATIN 40 MG TABLET GT SCH (20:08)
[2020-02-17] MEDS: INSULIN GLARGINE,HUM 300 UNITS/3 ML CARTRIDGE SQ SCH (20:48)
[2020-02-18 04:00] VITALS: BP 129/60
[2020-02-18] MEDS: BLOOD SUGAR DIAGNOSTIC 1 EACH STRIP VI SCH ×3 (05:31→18:19)
[2020-02-18] MEDS: INSULIN REGULAR, HUMAN 300 UNIT/3 ML VIAL SQ PRN ×2 (05:41→18:22)
[2020-02-18] MEDS: GLUCERNA 1.2 1000ML LIQUID GT PRN (06:23)
[2020-02-18 08:00] VITALS: BP 108/45
[2020-02-18] MEDS: LOSARTAN POTASSIUM 50 MG TABLET GT SCH (09:00)
[2020-02-18] MEDS: FUROSEMIDE 40 MG TABLET GT SCH (09:00)
[2020-02-18] MEDS: CHOLECALCIFEROL 1,000 UNIT TABLET GT SCH ×2 (12:27→18:19)
[2020-02-18] MEDS: CYANOCOBALAMIN 1,000 MCG TABLET GT SCH (12:28)
[2020-02-18] MEDS: ASPIRIN 81 MG TAB.CHEW GT SCH (12:28)
[2020-02-18] MEDS: CALCIUM CARB/VITAMIN D 500MG-200UNITS TABLET GT SCH ×2 (12:28→18:19)
[2020-02-18] MEDS: MULTIVITAMINS,THERAPEUTIC TABLET GT SCH (12:29)
[2020-02-18] MEDS: FOLIC ACID 1 MG TABLET GT SCH (12:29)
[2020-02-18] MEDS: CLOPIDOGREL 75 MG TABLET GT SCH (12:29)
[2020-02-18] MEDS: FERROUS SULFATE 300 MG/5 ML LIQUID UDC GT SCH (12:31)
[2020-02-18] MEDS: ENOXAPARIN SODIUM 40 MG/0.4 ML DISP.SYRIN SQ SCH (12:32)
[2020-02-18 15:38] VITALS: BP 137/59
[2020-02-18 20:00] VITALS: BP 148/59
[2020-02-18] MEDS: ATORVASTATIN 40 MG TABLET GT SCH (21:26)
[2020-02-18] MEDS: INSULIN GLARGINE,HUM 300 UNITS/3 ML CARTRIDGE SQ SCH (21:29)
[2020-02-19] MEDS: BLOOD SUGAR DIAGNOSTIC 1 EACH STRIP VI SCH ×5 (00:17→21:36)
[2020-02-19] MEDS: GLUCERNA 1.2 1000ML LIQUID GT PRN (02:39)
[2020-02-19 05:04] VITALS: BP 115/61
[2020-02-19] MEDS: INSULIN REGULAR, HUMAN 300 UNIT/3 ML VIAL SQ PRN ×4 (05:55→21:39)
--- NOTE | 2020-02-19 06:00 | NUR ---
PATIENT IS IN BED WITH HOB ELEVATED. FALL, SAFETY, AND ASPIRATION PRECAUTIONS OBSERVED. WITH ONGOING GT FEEDING, TOLERATED WELL. GT SITE INTACT AND PATENT. RECEIVED DUE MEDS, TOLERATED WELL. ALL NEEDS ATTENDED. WILL CONTINUE TO MONITOR PATIENT.
[2020-02-19 07:07] LABS: BASOPHILS % (AUTO) 0.7 % (0.0-2.0); EOSINOPHILS # (AUTO) 0.2 K/uL (0.0-0.7); EOSINOPHILS % (AUTO) 3.9 % (0.0-7.0); HEMATOCRIT 28.5 % (31.2-41.9); HEMOGLOBIN 9.4 g/dL (10.9-14.3); LYMPHOCYTES # (AUTO) 1.2 K/uL (20.0-40.0); LYMPHOCYTES % (AUTO) 26.1 % (20.5-51.5); MEAN CORPUSCULAR HEMOGLOBIN 27.5 uug (24.7-32.8); MEAN CORPUSCULAR HGB CONC 33 g/dL (32.3-35.6); MONOCYTES # (AUTO) 0.4 K/uL (2.0-10.0); MONOCYTES % (AUTO) 8.2 % (0.0-11.0); NEUTROPHILS # (AUTO) 2.9 K/uL (1.8-8.9); NEUTROPHILS % (AUTO) 61.1 % (38.5-71.5); PLATELET COUNT (AUTO) 149 K/uL (179-408); RED BLOOD CELL COUNT(AUTO) 3.43 MIL/uL (3.63-4.92); WHITE BLOOD COUNT (AUTO) 4.8 K/uL (3.8-11.8)
[2020-02-19 07:41] LABS: CREATININE 0.7 mg/dL (0.6-1.3); PHOSPHOROUS 3.6 mg/dL (2.5-4.9); POTASSIUM 3.9 mmol/L (3.5-5.1)
[2020-02-19 08:00] VITALS: BP 111/60
[2020-02-19] MEDS: MULTIVITAMINS,THERAPEUTIC TABLET GT SCH (08:37)
[2020-02-19] MEDS: LOSARTAN POTASSIUM 50 MG TABLET GT SCH (08:37)
[2020-02-19] MEDS: CYANOCOBALAMIN 1,000 MCG TABLET GT SCH (08:37)
[2020-02-19] MEDS: CLOPIDOGREL 75 MG TABLET GT SCH (08:37)
[2020-02-19] MEDS: FUROSEMIDE 40 MG TABLET GT SCH (08:37)
[2020-02-19] MEDS: CALCIUM CARB/VITAMIN D 500MG-200UNITS TABLET GT SCH ×2 (08:37→16:35)
[2020-02-19] MEDS: ASPIRIN 81 MG TAB.CHEW GT SCH (08:37)
[2020-02-19] MEDS: FOLIC ACID 1 MG TABLET GT SCH (08:38)
[2020-02-19] MEDS: CHOLECALCIFEROL 1,000 UNIT TABLET GT SCH ×2 (08:38→16:36)
[2020-02-19] MEDS: ENOXAPARIN SODIUM 40 MG/0.4 ML DISP.SYRIN SQ SCH (08:39)
[2020-02-19] MEDS: FERROUS SULFATE 300 MG/5 ML LIQUID UDC GT SCH (08:51)
[2020-02-19 15:18] VITALS: BP 120/50
--- NOTE | 2020-02-19 17:50 | NUR ---
NO CHANGES NOTED, G-TUBE INTACT WITH POSITIVE PLACEMENT, NO RESIDUAL NOTED, TOLERATING G-TUBE FEEDING WELL, G-TUBE SITE IS CLEAN AND DRY, PATENT, TOLERATED PT,OT,ST SERVICES WELL, NO ACUTE DISTRESS NOTED, REPOSITIONED EVERY 2 HOURS WHILE IN THE BED, BOTH HEELS OFF THE LOAD, FLOATED ON THE PILLOWS, NO SKIN ISSUES NOTED.
[2020-02-19 20:30] VITALS: BP 138/74
[2020-02-19] MEDS: ATORVASTATIN 40 MG TABLET GT SCH (21:35)
[2020-02-19] MEDS: INSULIN GLARGINE,HUM 300 UNITS/3 ML CARTRIDGE SQ SCH (21:37)
--- NOTE | 2020-02-19 22:15 | NUR ---
Received pt lying in bed comfortably watching TV. Oriented to self, unable to speak, aphasic. No acute distress noted. No SOB or pain noted. FaceTime with family @2042. G-tube placement checked, flushed and no residual noted. Tolerating feeding well, g-tube site clean and dry. All due medication administered. Bilateral heels floated with pillow and repositioned every two hours. All needs attended to g-tube flushed with water. Safety measures maintained. Will continue to monitor through the night.
[2020-02-20 04:00] VITALS: BP 136/48
[2020-02-20] MEDS: BLOOD SUGAR DIAGNOSTIC 1 EACH STRIP VI SCH ×4 (05:55→23:18)
[2020-02-20] MEDS: GLUCERNA 1.2 1000ML LIQUID GT PRN (06:55)
[2020-02-20 08:00] VITALS: BP 129/50
[2020-02-20] MEDS: ASPIRIN 81 MG TAB.CHEW GT SCH (08:59)
[2020-02-20] MEDS: MULTIVITAMINS,THERAPEUTIC TABLET GT SCH (09:00)
[2020-02-20] MEDS: CALCIUM CARB/VITAMIN D 500MG-200UNITS TABLET GT SCH ×2 (09:00→16:40)
[2020-02-20] MEDS: FOLIC ACID 1 MG TABLET GT SCH (09:00)
[2020-02-20] MEDS: FUROSEMIDE 40 MG TABLET GT SCH (09:00)
[2020-02-20] MEDS: CYANOCOBALAMIN 1,000 MCG TABLET GT SCH (09:00)
[2020-02-20] MEDS: CLOPIDOGREL 75 MG TABLET GT SCH (09:00)
[2020-02-20] MEDS: LOSARTAN POTASSIUM 50 MG TABLET GT SCH (09:00)
[2020-02-20] MEDS: CHOLECALCIFEROL 1,000 UNIT TABLET GT SCH ×2 (09:00→16:40)
[2020-02-20] MEDS: FERROUS SULFATE 300 MG/5 ML LIQUID UDC GT SCH (09:01)
[2020-02-20] MEDS: ENOXAPARIN SODIUM 40 MG/0.4 ML DISP.SYRIN SQ SCH (09:03)
[2020-02-20] MEDS: INSULIN REGULAR, HUMAN 300 UNIT/3 ML VIAL SQ PRN ×3 (11:15→23:22)
[2020-02-20 16:10] VITALS: BP 115/51
[2020-02-20 20:12] VITALS: BP 105/56
--- NOTE | 2020-02-20 21:00 | NUR ---
RECEIVED PATIENT IN BED AWAKE ALERT APHASIC MAKES GOOD EYE CONTACT ALL NEEDS ANTICIPATED AND SATISFIED ON ROOM AIR WITH NO SOB AT THIS TIME GT WITH GLUCERNA 1.2 AT 60 ML/HR ORDERED IN PROGRESS WITH NO GASTRIC RESIDUAL AT THIS TIME NO S/S OF HYPO/HYPERGLYCEMIC REACTIONS AT THIS TIME.TURNED AND REPOSITIONED MADE COMFORTABLE WILL CONTINUE TO OBSERVE.
[2020-02-20] MEDS: ATORVASTATIN 40 MG TABLET GT SCH (21:19)
[2020-02-20] MEDS: INSULIN GLARGINE,HUM 300 UNITS/3 ML CARTRIDGE SQ SCH (21:21)
[2020-02-21] MEDS: GLUCERNA 1.2 1000ML LIQUID GT PRN (02:29)
[2020-02-21 04:21] VITALS: BP 112/51
[2020-02-21] MEDS: BLOOD SUGAR DIAGNOSTIC 1 EACH STRIP VI SCH ×3 (06:10→19:00)
--- NOTE | 2020-02-21 06:19 | NUR ---
PATIENT TOLERATED HER GT FEEDINGS ORDERED WITH NO GASTRIC RESIDUAL GETS VERY FRUSTRATED BECAUSE OF BEING UNABLE TO EXPRESS SELF MUMBLES AND NOT UNDERSTANDABLE ALL NEEDS ANTICIPATED AND SATISFIED MADE COMFORTABLE WILL CONTINUE TO OBSERVE.
[2020-02-21] MEDS: INSULIN REGULAR, HUMAN 300 UNIT/3 ML VIAL SQ PRN ×2 (06:28→19:21)
[2020-02-21 07:30] VITALS: BP 139/64
[2020-02-21] MEDS: CYANOCOBALAMIN 1,000 MCG TABLET GT SCH (09:25)
[2020-02-21] MEDS: CHOLECALCIFEROL 1,000 UNIT TABLET GT SCH ×2 (09:25→16:19)
[2020-02-21] MEDS: CALCIUM CARB/VITAMIN D 500MG-200UNITS TABLET GT SCH ×2 (09:25→16:19)
[2020-02-21] MEDS: ASPIRIN 81 MG TAB.CHEW GT SCH (09:25)
[2020-02-21] MEDS: MULTIVITAMINS,THERAPEUTIC TABLET GT SCH (09:25)
[2020-02-21] MEDS: FUROSEMIDE 40 MG TABLET GT SCH (09:25)
[2020-02-21] MEDS: CLOPIDOGREL 75 MG TABLET GT SCH (09:26)
[2020-02-21] MEDS: FERROUS SULFATE 300 MG/5 ML LIQUID UDC GT SCH (09:26)
[2020-02-21] MEDS: FOLIC ACID 1 MG TABLET GT SCH (09:26)
[2020-02-21] MEDS: LOSARTAN POTASSIUM 50 MG TABLET GT SCH (09:28)
[2020-02-21] MEDS: ENOXAPARIN SODIUM 40 MG/0.4 ML DISP.SYRIN SQ SCH (09:31)
--- NOTE | 2020-02-21 14:22 | NUR ---
INTERDISCIPLINARY TEAM CONFERENCE
[2020-02-21 15:55] VITALS: BP 122/78
--- NOTE | 2020-02-21 16:54 | NUR ---
Pt received this morning, no acute distress, no SOB, denies pain. Pt becomes frustrated with difficulty communicating needs, able to at times but with great effort, picture chart utilized for basic needs. GT feeding at 60ml/hr, flushing well, compliant with medications as ordered via GT. Pt seen by . All comfort and safety needs attended to, call light within reach, will continue to monitor.
[2020-02-21 20:49] VITALS: BP 127/57
[2020-02-21] MEDS: ATORVASTATIN 40 MG TABLET GT SCH (21:47)
[2020-02-21] MEDS: INSULIN GLARGINE,HUM 300 UNITS/3 ML CARTRIDGE SQ SCH (21:48)
[2020-02-22] MEDS: BLOOD SUGAR DIAGNOSTIC 1 EACH STRIP VI SCH ×4 (00:25→17:24)
[2020-02-22] MEDS: INSULIN REGULAR, HUMAN 300 UNIT/3 ML VIAL SQ PRN ×4 (00:27→17:25)
[2020-02-22] MEDS: GLUCERNA 1.2 1000ML LIQUID GT PRN (03:54)
[2020-02-22 04:00] VITALS: BP 127/50
[2020-02-22 05:38] LABS: *BILIRUBIN,URIN NEGATIVE (NEGATIVE); *BLOOD, URINE 2+ (NEGATIVE); *CLARITY,URINE CLOUDY (CLEAR); *COLOR,URINE LIGHT YELLOW (YELLOW); *KETONES,URINE NEGATIVE (NEGATIVE); *UROBILINOGEN,URINE 0.2 E.U./dl (NORMAL); LEUKOCYTE ESTERASE ,URINE 3+ (NEGATIVE); NITRITE, URINE NEGATIVE (NEGATIVE); UGLUCOSE NEGATIVE (NEGATIVE)
--- NOTE | 2020-02-22 06:00 | NUR ---
Received pt lying in bed comfortably watching TV. Oriented to self, unable to speak, aphasic. No acute distress noted. No SOB or pain noted. FaceTime with family. G-tube placement checked, flushed and no residual noted. Tolerating feeding well, g-tube site clean and dry. All due medication administered. Bilateral heels floated with pillow and repositioned every two hours. All needs attended to g-tube flushed with water. Bell inserted 16 FR, tolerated well. UA collected and sent to lab. Safety measures maintained. Will continue to monitor through the night.
[2020-02-22 06:06] LABS: BACTERIA,URINE MANY /HPF (NONE SEEN); SQUAMOUS EPITHELIAL CELL,UR FEW /HPF (NONE SEEN); WBC,URINE TNTC /HPF (0-3)
[2020-02-22 08:00] VITALS: BP 122/44
[2020-02-22] MEDS: ASPIRIN 81 MG TAB.CHEW GT SCH (08:27)
[2020-02-22] MEDS: CALCIUM CARB/VITAMIN D 500MG-200UNITS TABLET GT SCH ×2 (08:27→17:06)
[2020-02-22] MEDS: CLOPIDOGREL 75 MG TABLET GT SCH (08:27)
[2020-02-22] MEDS: CYANOCOBALAMIN 1,000 MCG TABLET GT SCH (08:27)
[2020-02-22] MEDS: MULTIVITAMINS,THERAPEUTIC TABLET GT SCH (08:28)
[2020-02-22] MEDS: CHOLECALCIFEROL 1,000 UNIT TABLET GT SCH ×2 (08:28→17:06)
[2020-02-22] MEDS: FOLIC ACID 1 MG TABLET GT SCH (08:30)
[2020-02-22] MEDS: FERROUS SULFATE 300 MG/5 ML LIQUID UDC GT SCH (08:30)
[2020-02-22] MEDS: LOSARTAN POTASSIUM 50 MG TABLET GT SCH (08:30)
[2020-02-22] MEDS: FUROSEMIDE 40 MG TABLET GT SCH (08:31)
[2020-02-22] MEDS: ENOXAPARIN SODIUM 40 MG/0.4 ML DISP.SYRIN SQ SCH (08:34)
--- NOTE | 2020-02-22 09:46 | NUR ---
I SPOKE TO LIA, AND SHE TRANFERED ME TO PATIENT'S NURSE, BUT NO ONE ANSWERED. i CALLED AGAIN AND SPOKE TO JESUS, THE NURSE WAS NOT AVAILABLE, SO THEN I ASKED HER TO PLEASE HAVE HER CALL ME IN REGARDS TO THE VSE THAT WAS OREDERED FOR THIS PATIENT
--- NOTE | 2020-02-22 10:29 | NUR ---
I SPOKE TO LATIA FROM REHAB DEPT. IN REGARDS TO VIDEO SWALLOWING STUDY, SHE SAID TODAY AND HER LATEST WOULD BE 3:00PM WHICH DR. VEGAS SAID HE WOULD BE GLAD TO COME IN TODAY AT 3:OOPM FOR THE VSE. I NOTIFIED LATIA AND SHE IS AWARE THAT THE VIDEO WILL BE DONE TODAY @ 1500
[2020-02-22 16:00] VITALS: BP 117/49
--- NOTE | 2020-02-22 18:29 | NUR ---
EOSS: No significant acute changes during this shift. No changes in pt. LOC. All due medications given as ordered with no ASE. No s/sx of hypo/hyperglycemia. Pt. participated with PT and tolerated tx well. F/C patent and intact. G-tube care rendered, no residual noted. Pt. tolerating feeding well. No new skin condition noted. Safety measures in place. Call light and all frequently used items within pt. reach. Will endorse to oncoming shift accordingly. Addendum: 02/22/20 at 1833 by DONALD GARCIA RN Pt. seen by ST, per ST video swallow rescheduled for 02/23/2020. Dr. Pollack came and seen pt with no new orders.
[2020-02-22 20:03] VITALS: BP 131/50
[2020-02-22] MEDS: INSULIN GLARGINE,HUM 300 UNITS/3 ML CARTRIDGE SQ SCH (21:49)
[2020-02-22] MEDS: ATORVASTATIN 40 MG TABLET GT SCH (21:49)
--- NOTE | 2020-02-22 23:00 | NUR ---
No acute distress noted. No SOB or pain noted. G-tube placement checked, flushed and no residual noted. Tolerating feeding well, g-tube site clean and dry. All due medication administered. Bilateral heels floated with pillow and repositioned every two hours. All needs attended to g-tube flushed with water. Bell draining well. skin intact. Safety measures maintained. Will continue to monitor through the night.
[2020-02-23] MEDS: BLOOD SUGAR DIAGNOSTIC 1 EACH STRIP VI SCH ×5 (00:06→23:32)
[2020-02-23] MEDS: INSULIN REGULAR, HUMAN 300 UNIT/3 ML VIAL SQ PRN ×5 (00:08→23:36)
[2020-02-23 04:15] VITALS: BP_SYST 116; BP_SYST 131; BP_DIAS 28; BP_DIAS 50
[2020-02-23] MEDS: GLUCERNA 1.2 1000ML LIQUID GT PRN (06:36)
[2020-02-23 07:30] VITALS: BP 121/43
[2020-02-23] MEDS: FERROUS SULFATE 300 MG/5 ML LIQUID UDC GT SCH (09:50)
[2020-02-23] MEDS: CYANOCOBALAMIN 1,000 MCG TABLET GT SCH (09:50)
[2020-02-23] MEDS: ASPIRIN 81 MG TAB.CHEW GT SCH (09:50)
[2020-02-23] MEDS: CHOLECALCIFEROL 1,000 UNIT TABLET GT SCH ×2 (09:50→16:14)
[2020-02-23] MEDS: CLOPIDOGREL 75 MG TABLET GT SCH (09:51)
[2020-02-23] MEDS: MULTIVITAMINS,THERAPEUTIC TABLET GT SCH (09:51)
[2020-02-23] MEDS: CALCIUM CARB/VITAMIN D 500MG-200UNITS TABLET GT SCH ×2 (09:51→16:14)
[2020-02-23] MEDS: FOLIC ACID 1 MG TABLET GT SCH (09:51)
[2020-02-23] MEDS: FUROSEMIDE 40 MG TABLET GT SCH (09:51)
[2020-02-23] MEDS: LOSARTAN POTASSIUM 50 MG TABLET GT SCH (09:52)
[2020-02-23] MEDS: ENOXAPARIN SODIUM 40 MG/0.4 ML DISP.SYRIN SQ SCH (09:52)
[2020-02-23] MEDS: CEphaleXIN 500 MG CAPSULE PO SCH ×2 (15:20→21:42)
[2020-02-23 16:07] VITALS: BP 94/67
[2020-02-23 20:14] VITALS: BP 117/55
[2020-02-23] MEDS: ATORVASTATIN 40 MG TABLET GT SCH (21:42)
[2020-02-23] MEDS: INSULIN GLARGINE,HUM 300 UNITS/3 ML CARTRIDGE SQ SCH (21:53)
--- NOTE | 2020-02-24 02:13 | NUR ---
Awake and alert. Patient non verbal. Repositioned for comfort. Turned q 2hrs. Gtube intact, on continous feeding of Glucerna @ 60 cc/hr then flushed with 200 cc H2O q6hrs. HOB up at all times. Bell catheter in placed draining yellow urine. I & O monitor. Accucheck q6hr as ordered. NPO maintained but gets puree diet with nectar thick liquids once meal a day during lunch time. VSS. Fall precautions maintained. Siderails up for safety.
[2020-02-24 04:51] VITALS: BP 122/47
[2020-02-24] MEDS: CEphaleXIN 500 MG CAPSULE PO SCH ×3 (05:07→21:03)
[2020-02-24] MEDS: BLOOD SUGAR DIAGNOSTIC 1 EACH STRIP VI SCH ×4 (05:13→23:36)
--- NOTE | 2020-02-24 06:49 | NUR ---
End of shift notes: Bedrest maintained. Aphasic. Continous Glucerna feeding via Gtube. No acute distress noted. HOB at all times. VSS. Repositioned. Kept comfortable.
[2020-02-24 08:00] VITALS: BP 114/44
[2020-02-24] MEDS: ENOXAPARIN SODIUM 40 MG/0.4 ML DISP.SYRIN SQ SCH (08:30)
[2020-02-24] MEDS: CHOLECALCIFEROL 1,000 UNIT TABLET GT SCH ×2 (08:36→17:47)
[2020-02-24] MEDS: FUROSEMIDE 40 MG TABLET GT SCH (08:36)
[2020-02-24] MEDS: CALCIUM CARB/VITAMIN D 500MG-200UNITS TABLET GT SCH ×2 (08:36→17:47)
[2020-02-24] MEDS: FERROUS SULFATE 300 MG/5 ML LIQUID UDC GT SCH (08:37)
[2020-02-24] MEDS: LOSARTAN POTASSIUM 50 MG TABLET GT SCH (08:37)
[2020-02-24] MEDS: CYANOCOBALAMIN 1,000 MCG TABLET GT SCH (08:37)
[2020-02-24] MEDS: FOLIC ACID 1 MG TABLET GT SCH (08:37)
[2020-02-24] MEDS: CLOPIDOGREL 75 MG TABLET GT SCH (08:38)
[2020-02-24] MEDS: ASPIRIN 81 MG TAB.CHEW GT SCH (08:45)
[2020-02-24] MEDS: MULTIVITAMINS,THERAPEUTIC TABLET GT SCH (09:00)
--- NOTE | 2020-02-24 14:00 | NUR ---
Nursing- Participated in her group therapy, was oob to her wheel chair. Assisted by KALPESH during her lunch ate min. amount. Tolerating her GT feedings of Glucerna 1.2 F/S @ 60 ml per hour. . Follows simple directions, uses gestures , safety reviewed emphasized. F/C intact and patent. .
[2020-02-24] MEDS: INSULIN REGULAR, HUMAN 300 UNIT/3 ML VIAL SQ PRN ×2 (14:30→17:51)
[2020-02-24 16:00] VITALS: BP 135/50
[2020-02-24 20:00] VITALS: BP 123/48
[2020-02-24] MEDS: ATORVASTATIN 40 MG TABLET GT SCH (21:03)
[2020-02-24] MEDS: INSULIN GLARGINE,HUM 300 UNITS/3 ML CARTRIDGE SQ SCH (21:11)
[2020-02-25 04:00] VITALS: BP 128/46
--- NOTE | 2020-02-25 04:16 | NUR ---
awake and alert. On continous tube feedings of Glucerna via Gtube. HOB up at all times. Needs attended. Will monitor patient. Repositioned for comfort. Talked to family via Zoom lens. Patient responded well. VSS. Fall precautions maintained. Turned q 2hrs. No acute distress noted.
[2020-02-25] MEDS: BLOOD SUGAR DIAGNOSTIC 1 EACH STRIP VI SCH ×3 (05:42→18:40)
[2020-02-25] MEDS: CEphaleXIN 500 MG CAPSULE PO SCH ×3 (05:42→21:07)
[2020-02-25 08:20] VITALS: BP 134/53
[2020-02-25] MEDS: MULTIVITAMINS,THERAPEUTIC TABLET GT SCH (09:07)
[2020-02-25] MEDS: CHOLECALCIFEROL 1,000 UNIT TABLET GT SCH ×2 (09:07→18:01)
[2020-02-25] MEDS: FERROUS SULFATE 300 MG/5 ML LIQUID UDC GT SCH (09:07)
[2020-02-25] MEDS: CYANOCOBALAMIN 1,000 MCG TABLET GT SCH (09:07)
[2020-02-25] MEDS: CALCIUM CARB/VITAMIN D 500MG-200UNITS TABLET GT SCH ×2 (09:07→18:00)
[2020-02-25] MEDS: FOLIC ACID 1 MG TABLET GT SCH (09:07)
[2020-02-25] MEDS: CLOPIDOGREL 75 MG TABLET GT SCH (09:07)
[2020-02-25] MEDS: FUROSEMIDE 40 MG TABLET GT SCH (09:07)
[2020-02-25] MEDS: ASPIRIN 81 MG TAB.CHEW GT SCH (09:07)
[2020-02-25] MEDS: ENOXAPARIN SODIUM 40 MG/0.4 ML DISP.SYRIN SQ SCH (09:23)
[2020-02-25] MEDS: LOSARTAN POTASSIUM 50 MG TABLET GT SCH (09:23)
--- NOTE | 2020-02-25 10:58 | NUR ---
Patient awake during morning rounds. On continous feedings @ 60cc/hr of Glucerna. HOB up at all times. Tolerated well. All due meds given without difficulty. Tube feeds would put on hold for lunch time. Patient needs to have one meal per day for oral gratification. Will monitor patient's food intake.Bell catheter intact draining yellow urine.
[2020-02-25 11:21] VITALS: BP 133/49
[2020-02-25] MEDS: INSULIN REGULAR, HUMAN 300 UNIT/3 ML VIAL SQ PRN (11:29)
[2020-02-25 15:26] VITALS: BP 139/49
[2020-02-25 20:43] VITALS: BP 141/59
[2020-02-25] MEDS: ATORVASTATIN 40 MG TABLET GT SCH (21:07)
[2020-02-25] MEDS: INSULIN GLARGINE,HUM 300 UNITS/3 ML CARTRIDGE SQ SCH (21:10)
--- NOTE | 2020-02-25 21:35 | NUR ---
Received pt resting in bed. Awake and alert. Pt is non- verbal. Pt in good spirit after video call from family. No acute distress noted. Denies pain/ discomfort. Thomas Fernandez 0. Tube feeding running at 60cc/hr. No residual. Due meds given as ordered via tube feeding. Safety measures maintained. Call light and personal items within reach. Will continue to monitor.
[2020-02-26] MEDS: BLOOD SUGAR DIAGNOSTIC 1 EACH STRIP VI SCH ×5 (00:19→23:23)
[2020-02-26] MEDS: INSULIN REGULAR, HUMAN 300 UNIT/3 ML VIAL SQ PRN ×4 (00:20→17:57)
[2020-02-26] MEDS: GLUCERNA 1.2 1000ML LIQUID GT PRN (00:27)
[2020-02-26 04:55] VITALS: BP 115/48
[2020-02-26] MEDS: CEphaleXIN 500 MG CAPSULE PO SCH ×3 (05:52→22:00)
[2020-02-26 08:00] VITALS: BP 148/89
[2020-02-26] MEDS: CLOPIDOGREL 75 MG TABLET GT SCH (08:37)
[2020-02-26] MEDS: CHOLECALCIFEROL 1,000 UNIT TABLET GT SCH ×2 (08:37→17:40)
[2020-02-26] MEDS: MULTIVITAMINS,THERAPEUTIC TABLET GT SCH (08:37)
[2020-02-26] MEDS: FUROSEMIDE 40 MG TABLET GT SCH (08:37)
[2020-02-26] MEDS: CALCIUM CARB/VITAMIN D 500MG-200UNITS TABLET GT SCH ×2 (08:37→17:40)
[2020-02-26] MEDS: FOLIC ACID 1 MG TABLET GT SCH (08:37)
[2020-02-26] MEDS: CYANOCOBALAMIN 1,000 MCG TABLET GT SCH (08:37)
[2020-02-26] MEDS: ASPIRIN 81 MG TAB.CHEW GT SCH (08:37)
[2020-02-26] MEDS: FERROUS SULFATE 300 MG/5 ML LIQUID UDC GT SCH (08:38)
[2020-02-26] MEDS: LOSARTAN POTASSIUM 50 MG TABLET GT SCH (08:38)
[2020-02-26] MEDS: ENOXAPARIN SODIUM 40 MG/0.4 ML DISP.SYRIN SQ SCH (08:39)
[2020-02-26 16:00] VITALS: BP 120/44
[2020-02-26 20:00] VITALS: BP 127/70
[2020-02-26] MEDS: ATORVASTATIN 40 MG TABLET GT SCH (22:00)
[2020-02-26] MEDS: INSULIN GLARGINE,HUM 300 UNITS/3 ML CARTRIDGE SQ SCH (22:03)
[2020-02-27 04:17] VITALS: BP 124/61
[2020-02-27] MEDS: BLOOD SUGAR DIAGNOSTIC 1 EACH STRIP VI SCH ×4 (05:10→23:31)
[2020-02-27] MEDS: CEphaleXIN 500 MG CAPSULE PO SCH (05:10)
--- NOTE | 2020-02-27 06:47 | NUR ---
PATIENT IS IN BED, WITH HOB ELEVATED AT 45 DEGREES. FALL, SAFETY, AND ASPIRATION PRECAUTIONS OBSERVED. PATIENT WITH ONGOING GT FEEDING OF GLUCERNA 1.2 AT 60CC/HR. TOLERATED WELL. GT SITE INTACT AND PATENT. PATIENT WITH RANGEL CATHETER, DRAINING CLEAR YELLOW URINE. KEPT PATIENT WARM, DRY, AND COMFORTABLE. WILL CONTINUE TO MONITOR PATIENT.
[2020-02-27 07:30] VITALS: BP 154/68
[2020-02-27] MEDS: LOSARTAN POTASSIUM 50 MG TABLET GT SCH (09:00)
[2020-02-27] MEDS: ASPIRIN 81 MG TAB.CHEW GT SCH (09:44)
[2020-02-27] MEDS: CALCIUM CARB/VITAMIN D 500MG-200UNITS TABLET GT SCH ×2 (09:44→16:44)
[2020-02-27] MEDS: CHOLECALCIFEROL 1,000 UNIT TABLET GT SCH ×2 (09:45→16:44)
[2020-02-27] MEDS: FOLIC ACID 1 MG TABLET GT SCH (09:45)
[2020-02-27] MEDS: CLOPIDOGREL 75 MG TABLET GT SCH (09:45)
[2020-02-27] MEDS: FUROSEMIDE 40 MG TABLET GT SCH (09:45)
[2020-02-27] MEDS: MULTIVITAMINS,THERAPEUTIC TABLET GT SCH (09:45)
[2020-02-27] MEDS: FERROUS SULFATE 300 MG/5 ML LIQUID UDC GT SCH (09:45)
[2020-02-27] MEDS: CYANOCOBALAMIN 1,000 MCG TABLET GT SCH (09:45)
[2020-02-27] MEDS: ENOXAPARIN SODIUM 40 MG/0.4 ML DISP.SYRIN SQ SCH (09:48)
--- NOTE | 2020-02-27 10:47 | NUR ---
patient son chanel and daughters are calling multiple times since this morning are concerned about why patient was started on keflex and why no one called to tell the family know about patient got uti, and faria catheter, try to explain to son that your mother is fine, there is no acute distress. also try to explain to son that if brother sisters can communicate with each other rather than calling individually to the nursing station. patient son is not happy about not calling him everyday, every intervention we do. answered questions for son and try to address the concerns.
[2020-02-27] MEDS: INSULIN REGULAR, HUMAN 300 UNIT/3 ML VIAL SQ PRN (12:06)
[2020-02-27] MEDS: CEphaleXIN 500 MG CAPSULE GT SCH ×2 (13:07→21:48)
[2020-02-27 17:14] VITALS: BP 129/54
[2020-02-27] MEDS ORDERED: HYDROCODONE/APAP 5-325MG TABLET PO PRN (19:15)
--- NOTE | 2020-02-27 19:17 | NUR ---
no changes noted during shift
[2020-02-27 20:00] VITALS: BP 132/64
[2020-02-27] MEDS: ATORVASTATIN 40 MG TABLET GT SCH (21:45)
[2020-02-27] MEDS: INSULIN GLARGINE,HUM 300 UNITS/3 ML CARTRIDGE SQ SCH (21:57)
[2020-02-28 04:00] VITALS: BP 126/53
[2020-02-28] MEDS: CEphaleXIN 500 MG CAPSULE GT SCH ×2 (05:28→13:06)
[2020-02-28] MEDS: BLOOD SUGAR DIAGNOSTIC 1 EACH STRIP VI SCH ×3 (05:33→16:33)
[2020-02-28] MEDS: INSULIN REGULAR, HUMAN 300 UNIT/3 ML VIAL SQ PRN ×2 (05:41→16:37)
--- NOTE | 2020-02-28 06:57 | NUR ---
Condition unchanged. Awake and alert. Patient aphasic. On continous Glucerna feedings thru Gtube. HOB up at all times. No nausea or vomiting noted. Will monitor patient. Repositioned for comfort. Bell catheter intact draining yellow urine. I & O monitor. No acute distress noted.
[2020-02-28 07:40] LABS: BILIRUBIN,TOTAL 0.4 mg/dL (0.2-1.0); CREATININE 0.7 mg/dL (0.6-1.3); MAGNESIUM 2.1 mg/dL (1.8-2.4); PHOSPHOROUS 4.3 mg/dL (2.5-4.9); POTASSIUM 4.1 mmol/L (3.5-5.1); TOTAL PROTEIN, SERUM 6.1 g/dL (6.4-8.2)
[2020-02-28 07:59] LABS: BASOPHILS % (AUTO) 0.6 % (0.0-2.0); EOSINOPHILS # (AUTO) 0.2 K/uL (0.0-0.7); EOSINOPHILS % (AUTO) 2.7 % (0.0-7.0); HEMATOCRIT 28.8 % (31.2-41.9); HEMOGLOBIN 9.5 g/dL (10.9-14.3); LYMPHOCYTES # (AUTO) 1.6 K/uL (20.0-40.0); LYMPHOCYTES % (AUTO) 24.6 % (20.5-51.5); MEAN CORPUSCULAR HEMOGLOBIN 27.8 uug (24.7-32.8); MEAN CORPUSCULAR HGB CONC 33 g/dL (32.3-35.6); MONOCYTES # (AUTO) 0.5 K/uL (2.0-10.0); NEUTROPHILS # (AUTO) 4.1 K/uL (1.8-8.9); NEUTROPHILS % (AUTO) 64.1 % (38.5-71.5); PLATELET COUNT (AUTO) 176 K/uL (179-408); RED BLOOD CELL COUNT(AUTO) 3.43 MIL/uL (3.63-4.92); WHITE BLOOD COUNT (AUTO) 6.3 K/uL (3.8-11.8)
[2020-02-28 08:00] VITALS: BP 124/42
[2020-02-28] MEDS: ASPIRIN 81 MG TAB.CHEW GT SCH (08:07)
[2020-02-28] MEDS: CALCIUM CARB/VITAMIN D 500MG-200UNITS TABLET GT SCH ×2 (08:07→16:19)
[2020-02-28] MEDS: MULTIVITAMINS,THERAPEUTIC TABLET GT SCH (08:08)
[2020-02-28] MEDS: CYANOCOBALAMIN 1,000 MCG TABLET GT SCH (08:09)
[2020-02-28] MEDS: FUROSEMIDE 40 MG TABLET GT SCH (08:13)
[2020-02-28] MEDS: FOLIC ACID 1 MG TABLET GT SCH (08:14)
[2020-02-28] MEDS: LOSARTAN POTASSIUM 50 MG TABLET GT SCH (08:14)
[2020-02-28] MEDS: CLOPIDOGREL 75 MG TABLET GT SCH (08:15)
[2020-02-28] MEDS: CHOLECALCIFEROL 1,000 UNIT TABLET GT SCH ×2 (08:15→16:19)
[2020-02-28] MEDS: FERROUS SULFATE 300 MG/5 ML LIQUID UDC GT SCH (08:16)
[2020-02-28] MEDS: ENOXAPARIN SODIUM 40 MG/0.4 ML DISP.SYRIN SQ SCH ×2 (08:20→09:00)
--- NOTE | 2020-02-28 09:00 | NUR ---
Pt. noted with ecchymosis on LLQ and RLQ. Gum bleed noted. Lovenox held.
--- NOTE | 2020-02-28 10:28 | NUR ---
spoke to dr patel regarding patient large eccymosis and gum bleed, with order to discontinue lovenox order noted Addendum: 02/28/20 at 1030 by SIDNEY CHOW RN, RN large eccymosis to lower quadrant of abdomen
[2020-02-28 14:02] LABS: *BILIRUBIN,URIN NEGATIVE (NEGATIVE); *BLOOD, URINE 2+ (NEGATIVE); *COLOR,URINE YELLOW (YELLOW); *KETONES,URINE NEGATIVE (NEGATIVE); *UROBILINOGEN,URINE 0.2 E.U./dl (NORMAL); LEUKOCYTE ESTERASE ,URINE 1+ (NEGATIVE); NITRITE, URINE NEGATIVE (NEGATIVE); UGLUCOSE NEGATIVE (NEGATIVE)
[2020-02-28 14:11] LABS: *CLARITY,URINE SLIGHTLY CLOUDY (CLEAR); RBC,URINE 20-50 /HPF (0-3)
[2020-02-28 14:12] LABS: BACTERIA,URINE FEW /HPF (NONE SEEN); SQUAMOUS EPITHELIAL CELL,UR FEW /HPF (NONE SEEN)
[2020-02-28 16:00] VITALS: BP 126/51
[2020-02-28] MEDS ORDERED: BARIUM SULFATE 240 ML ORAL.SUSP PO ONE (17:12)
[2020-02-28] MEDS ORDERED: BARIUM SULFATE 148 GM SUSP.RECON PO ONE (17:12)
--- NOTE | 2020-02-28 19:01 | NUR ---
EOSS: Pt. resting in bed. No s/s of acute distress, no SOB, no changes in LOC noted throughout shift. G-Tube patent, running Glucerna 1.2 @ 60cc/hr, pt tolerating well. G-tube cared rendered, 10cc residual noted. Medications administered via GT as ordered with no adverse effects noted. Bell catheter patent and intact, draining yellow urine. Pt participated in therapy with PT, OT, CRANE OPERATOR, tolerated activity well. Aspiration precautions, safety measures, fall precautions in place throughout shift. Call light and belongings within reach. Will endorse care to oncoming shift.
[2020-02-28 20:30] VITALS: BP 118/54
--- NOTE | 2020-02-28 22:20 | NUR ---
Received pt lying in bed comfortably watching TV. No acute distress noted. No SOB or pain noted, Guzman Fernandez 0. FaceTime with family, family concerned that pt has temperature reassured family no temp, removed warm blanket. G-tube placement checked, flushed and no residual noted. Tolerating feeding well, g-tube site clean and dry. All due medication administered. Bilateral heels floated with pillow and repositioned every two hours. All needs attended too. Bell draining well, yellow urine. Safety measures maintained. Will continue to monitor through the night.
[2020-02-28] MEDS: ATORVASTATIN 40 MG TABLET GT SCH (22:27)
[2020-02-28] MEDS: INSULIN GLARGINE,HUM 300 UNITS/3 ML CARTRIDGE SQ SCH (22:27)
[2020-02-29] MEDS: BLOOD SUGAR DIAGNOSTIC 1 EACH STRIP VI SCH ×2 (00:12→05:20)
[2020-02-29] MEDS: INSULIN REGULAR, HUMAN 300 UNIT/3 ML VIAL SQ PRN (05:22)
[2020-02-29 08:00] VITALS: BP 116/43
[2020-02-29] MEDS: FUROSEMIDE 40 MG TABLET GT SCH (08:57)
[2020-02-29] MEDS: FOLIC ACID 1 MG TABLET GT SCH (08:57)
[2020-02-29] MEDS: ASPIRIN 81 MG TAB.CHEW GT SCH (08:57)
[2020-02-29] MEDS: CLOPIDOGREL 75 MG TABLET GT SCH (08:58)
[2020-02-29] MEDS: CHOLECALCIFEROL 1,000 UNIT TABLET GT SCH ×2 (08:58→17:17)
[2020-02-29] MEDS: CALCIUM CARB/VITAMIN D 500MG-200UNITS TABLET GT SCH ×2 (08:58→17:17)
[2020-02-29] MEDS: CYANOCOBALAMIN 1,000 MCG TABLET GT SCH (08:58)
[2020-02-29] MEDS: MULTIVITAMINS,THERAPEUTIC TABLET GT SCH (08:58)
[2020-02-29] MEDS: FERROUS SULFATE 300 MG/5 ML LIQUID UDC GT SCH (09:02)
[2020-02-29] MEDS: LOSARTAN POTASSIUM 50 MG TABLET GT SCH (09:02)
[2020-02-29] MEDS: GLUCERNA 1.2 1000ML LIQUID GT PRN (17:21)
[2020-02-29 20:31] VITALS: BP 140/50
[2020-02-29] MEDS: INSULIN GLARGINE,HUM 300 UNITS/3 ML CARTRIDGE SQ SCH (21:09)
--- NOTE | 2020-02-29 22:00 | NUR ---
Received pt resting in bed. Awake and alert. No acute distress noted. Denies pain/ discomfort. Guzman Fernandez 0. Tube feeding running at 60cc/hr. No residual. Due meds given as ordered. Bell draining well. All need attended too. Safety measures maintained. Call light and personal items within reach. Will continue to monitor.
[2020-03-01 04:40] VITALS: BP 123/55
[2020-03-01 06:02] LABS: BASOPHILS % (AUTO) 0.6 % (0.0-2.0); EOSINOPHILS # (AUTO) 0.2 K/uL (0.0-0.7); EOSINOPHILS % (AUTO) 3.1 % (0.0-7.0); HEMATOCRIT 28.8 % (31.2-41.9); HEMOGLOBIN 9.7 g/dL (10.9-14.3); LYMPHOCYTES # (AUTO) 1.5 K/uL (20.0-40.0); LYMPHOCYTES % (AUTO) 26.3 % (20.5-51.5); MEAN CORPUSCULAR HEMOGLOBIN 28.1 uug (24.7-32.8); MEAN CORPUSCULAR HGB CONC 34 g/dL (32.3-35.6); MEAN CORPUSCULAR VOLUME 83.4 fL (75.5-95.3); MONOCYTES # (AUTO) 0.4 K/uL (2.0-10.0); MONOCYTES % (AUTO) 7.6 % (0.0-11.0); NEUTROPHILS # (AUTO) 3.5 K/uL (1.8-8.9); NEUTROPHILS % (AUTO) 62.4 % (38.5-71.5); PLATELET COUNT (AUTO) 180 K/uL (179-408); RED BLOOD CELL COUNT(AUTO) 3.46 MIL/uL (3.63-4.92); WHITE BLOOD COUNT (AUTO) 5.7 K/uL (3.8-11.8)
[2020-03-01 07:20] LABS: BILIRUBIN,TOTAL 0.3 mg/dL (0.2-1.0); CREATININE 0.7 mg/dL (0.6-1.3); MAGNESIUM 1.9 mg/dL (1.8-2.4); PHOSPHOROUS 3.8 mg/dL (2.5-4.9); POTASSIUM 3.8 mmol/L (3.5-5.1); TOTAL PROTEIN, SERUM 6.2 g/dL (6.4-8.2)
[2020-03-01] MEDS: CLOPIDOGREL 75 MG TABLET GT SCH (08:23)
[2020-03-01] MEDS: CHOLECALCIFEROL 1,000 UNIT TABLET GT SCH ×2 (08:23→16:07)
[2020-03-01] MEDS: FUROSEMIDE 40 MG TABLET GT SCH (08:23)
[2020-03-01] MEDS: FOLIC ACID 1 MG TABLET GT SCH (08:23)
[2020-03-01] MEDS: FERROUS SULFATE 300 MG/5 ML LIQUID UDC GT SCH (08:23)
[2020-03-01] MEDS: CALCIUM CARB/VITAMIN D 500MG-200UNITS TABLET GT SCH ×2 (08:23→16:07)
[2020-03-01] MEDS: ASPIRIN 81 MG TAB.CHEW GT SCH (08:23)
[2020-03-01] MEDS: CYANOCOBALAMIN 1,000 MCG TABLET GT SCH (08:23)
[2020-03-01] MEDS: LOSARTAN POTASSIUM 50 MG TABLET GT SCH (08:23)
[2020-03-01] MEDS: MULTIVITAMINS,THERAPEUTIC TABLET GT SCH (08:23)
[2020-03-01 11:45] VITALS: BP 125/47
[2020-03-01 16:00] VITALS: BP 142/44
[2020-03-01 21:14] VITALS: BP 124/81
[2020-03-01] MEDS: INSULIN GLARGINE,HUM 300 UNITS/3 ML CARTRIDGE SQ SCH (21:40)
--- NOTE | 2020-03-01 23:03 | NUR ---
Received pt resting in bed. Pt had a video call with family. Pt is aphasic. No acute distress noted. Thomas Fernandez 0. G- tube in place, no residual noted. G-tube site clean and dry. Turned and repositioned. Both heels offloaded. Pt's faria catheter noted to be out. Notified Omero Phillips NP, order to check and bladder scan pt in 8 hrs and reinsert faria catheter if retaining >350. Safety measures maintained. Call light and personal items within reach. Will continue to monitor.
[2020-03-02] MEDS ORDERED: CLONIDINE HCL 0.1 MG TABLET PO PRN (05:48)
--- NOTE | 2020-03-02 05:48 | NUR ---
Pt's BP elevated 160/80. Notified [facility] PLANT PATHOLOGIST, with new order for clonidine 0.1 mg Q8H PRN for SBP >160. Will carry out order.
[2020-03-02 06:04] VITALS: BP 160/80
[2020-03-02] MEDS: GLUCERNA 1.2 1000ML LIQUID GT PRN (06:07)
--- NOTE | 2020-03-02 06:24 | NUR ---
Pt noted to void x2. Bladder scan 237 mL at 0500. Will endorse accordingly.
[2020-03-02 09:02] VITALS: BP 114/56
[2020-03-02] MEDS: FERROUS SULFATE 300 MG/5 ML LIQUID UDC GT SCH (09:21)
[2020-03-02] MEDS: MULTIVITAMINS,THERAPEUTIC TABLET GT SCH (09:22)
[2020-03-02] MEDS: FUROSEMIDE 40 MG TABLET GT SCH (09:22)
[2020-03-02] MEDS: CALCIUM CARB/VITAMIN D 500MG-200UNITS TABLET GT SCH ×2 (09:22→17:33)
[2020-03-02] MEDS: LOSARTAN POTASSIUM 50 MG TABLET GT SCH (09:22)
[2020-03-02] MEDS: CLOPIDOGREL 75 MG TABLET GT SCH (09:22)
[2020-03-02] MEDS: CYANOCOBALAMIN 1,000 MCG TABLET GT SCH (09:22)
[2020-03-02] MEDS: ASPIRIN 81 MG TAB.CHEW GT SCH (09:22)
[2020-03-02] MEDS: FOLIC ACID 1 MG TABLET GT SCH (09:22)
[2020-03-02] MEDS: CHOLECALCIFEROL 1,000 UNIT TABLET GT SCH ×2 (09:22→17:33)
[2020-03-02 11:56] VITALS: BP 120/52
[2020-03-02 16:34] VITALS: BP 150/53
[2020-03-02 20:00] VITALS: BP 135/59
[2020-03-02] MEDS: INSULIN GLARGINE,HUM 300 UNITS/3 ML CARTRIDGE SQ SCH (21:50)
[2020-03-02] MEDS: DOCUSATE SODIUM 100 MG/10 ML LIQUID UDC GT SCH (21:51)
--- NOTE | 2020-03-02 22:00 | NUR ---
Received pt resting in bed. No acute distress noted. G- tube in place, no residual noted. G-tube site clean and dry. All due medication administered. Turned and repositioned. Both heels offloaded. Voiding freely x3. Safety measures maintained. Call light and personal items within reach. Will continue to monitor.
[2020-03-03 04:00] VITALS: BP 119/59
[2020-03-03] MEDS: GLUCERNA 1.2 1000ML LIQUID GT PRN (05:11)
--- NOTE | 2020-03-03 05:30 | NUR ---
Pt noted to void x2. Bladder scan 159 mL at 0530.
[2020-03-03] MEDS: CLOPIDOGREL 75 MG TABLET GT SCH (08:44)
[2020-03-03] MEDS: LOSARTAN POTASSIUM 50 MG TABLET GT SCH (08:45)
[2020-03-03] MEDS: FUROSEMIDE 40 MG TABLET GT SCH (08:45)
[2020-03-03] MEDS: CHOLECALCIFEROL 1,000 UNIT TABLET GT SCH ×2 (08:45→17:01)
[2020-03-03] MEDS: MULTIVITAMINS,THERAPEUTIC TABLET GT SCH (08:45)
[2020-03-03] MEDS: CYANOCOBALAMIN 1,000 MCG TABLET GT SCH (08:45)
[2020-03-03] MEDS: DOCUSATE SODIUM 100 MG/10 ML LIQUID UDC GT SCH ×2 (08:46→21:55)
[2020-03-03] MEDS: FERROUS SULFATE 300 MG/5 ML LIQUID UDC GT SCH (08:46)
[2020-03-03] MEDS: CALCIUM CARB/VITAMIN D 500MG-200UNITS TABLET GT SCH ×2 (08:46→17:01)
[2020-03-03] MEDS: ASPIRIN 81 MG TAB.CHEW GT SCH (08:46)
[2020-03-03] MEDS: FOLIC ACID 1 MG TABLET GT SCH (08:47)
[2020-03-03 08:50] VITALS: BP 138/53
[2020-03-03 15:44] VITALS: BP 116/44
--- NOTE | 2020-03-03 19:00 | NUR ---
bladder scan done afternoon 265ml, no distended blader noted,able to void in diaper.
[2020-03-03 20:48] VITALS: BP 136/79
[2020-03-03] MEDS: INSULIN GLARGINE,HUM 300 UNITS/3 ML CARTRIDGE SQ SCH (22:12)
[2020-03-04 05:35] VITALS: BP 138/54
[2020-03-04 07:42] VITALS: BP 140/73
[2020-03-04] MEDS: DOCUSATE SODIUM 100 MG/10 ML LIQUID UDC GT SCH ×2 (08:34→21:21)
[2020-03-04] MEDS: FUROSEMIDE 40 MG TABLET GT SCH (08:35)
[2020-03-04] MEDS: FOLIC ACID 1 MG TABLET GT SCH (08:35)
[2020-03-04] MEDS: ASPIRIN 81 MG TAB.CHEW GT SCH (08:35)
[2020-03-04] MEDS: CYANOCOBALAMIN 1,000 MCG TABLET GT SCH (08:35)
[2020-03-04] MEDS: MULTIVITAMINS,THERAPEUTIC TABLET GT SCH (08:36)
[2020-03-04] MEDS: CHOLECALCIFEROL 1,000 UNIT TABLET GT SCH ×2 (08:36→17:45)
[2020-03-04] MEDS: CLOPIDOGREL 75 MG TABLET GT SCH (08:36)
[2020-03-04] MEDS: FERROUS SULFATE 300 MG/5 ML LIQUID UDC GT SCH (08:42)
[2020-03-04] MEDS: LOSARTAN POTASSIUM 50 MG TABLET GT SCH (08:42)
[2020-03-04] MEDS: CALCIUM CARB/VITAMIN D 500MG-200UNITS TABLET GT SCH ×2 (08:51→17:44)
[2020-03-04 15:20] VITALS: BP 116/49
--- NOTE | 2020-03-04 18:52 | NUR ---
EOSS: Pt. resting in bed. No s/s of acute distress, no SOB, no changes in LOC during shift. G-Tube patent, running Glucerna 1.2 @ 60cc/hr. G-Tube care rendered and meds administered as ordered with no adverse effects. Pt tolerating PO meals per diet order. Aspiration precautions, safety measures, fall precautions maintained throughout shift. Call light and belongings within reach. Will endorse care to oncoming shift.
[2020-03-04 20:34] VITALS: BP 126/51
[2020-03-04] MEDS: INSULIN GLARGINE,HUM 300 UNITS/3 ML CARTRIDGE SQ SCH (21:21)
[2020-03-04] MEDS: GLUCERNA 1.2 1000ML LIQUID GT PRN (21:35)
[2020-03-05 04:25] VITALS: BP 142/62
[2020-03-05] MEDS: ASPIRIN 81 MG TAB.CHEW GT SCH (08:13)
[2020-03-05] MEDS: CALCIUM CARB/VITAMIN D 500MG-200UNITS TABLET GT SCH ×2 (08:14→16:49)
[2020-03-05] MEDS: FUROSEMIDE 40 MG TABLET GT SCH (08:14)
[2020-03-05] MEDS: MULTIVITAMINS,THERAPEUTIC TABLET GT SCH (08:14)
[2020-03-05] MEDS: CHOLECALCIFEROL 1,000 UNIT TABLET GT SCH ×2 (08:14→16:49)
[2020-03-05] MEDS: CYANOCOBALAMIN 1,000 MCG TABLET GT SCH (08:14)
[2020-03-05] MEDS: FERROUS SULFATE 300 MG/5 ML LIQUID UDC GT SCH (08:15)
[2020-03-05] MEDS: FOLIC ACID 1 MG TABLET GT SCH (08:15)
[2020-03-05] MEDS: LOSARTAN POTASSIUM 50 MG TABLET GT SCH (08:16)
[2020-03-05] MEDS: CLOPIDOGREL 75 MG TABLET GT SCH (08:17)
[2020-03-05] MEDS: DOCUSATE SODIUM 100 MG/10 ML LIQUID UDC GT SCH (08:17)
[2020-03-05 12:39] VITALS: BP 115/50
--- NOTE | 2020-03-05 13:52 | NUR ---
patient is being discharged home with son, stable condition, g-tube intact and patent, prescription attached, instruction given to son about aspiration precautions, attached copy from speech therapy for aspiration precautions, son verbalized understanding of instructions, skin intact, no acute distress noted, supplies provided as ordered, belongings are signed and accounted, patient is max assist with adls, no IV access on patient , ID band removed, being picked up by son chanel.
[2020-03-05 16:01] VITALS: BP 111/59
--- NOTE | 2020-03-05 19:08 | NUR ---
patient discharged home with [facility], belongings are sent with patient
== END 2020-03-05 19:00 | disposition home health service (06) | DRG 56 ==
PROVIDERS: ADMIT Physical Medicine & Rehabilitation Pain Medicine; ATTEND Physical Medicine & Rehabilitation Pain Medicine
DX: I69.351 Hemiplegia and hemiparesis following cerebral infarction affecting right dominant side (principal); E43 Unspecified severe protein-calorie malnutrition; D68.59 Other primary thrombophilia; R13.10 Dysphagia, unspecified; I69.320 Aphasia following cerebral infarction; I69.391 Dysphagia following cerebral infarction; E78.5 Hyperlipidemia, unspecified; D63.8 Anemia in other chronic diseases classified elsewhere; R53.1 Weakness; I69.398 Other sequelae of cerebral infarction; E11.65 Type 2 diabetes mellitus with hyperglycemia; E66.9 Obesity, unspecified; I10 Essential (primary) hypertension; I25.10 Atherosclerotic heart disease of native coronary artery without angina pectoris; I25.2 Old myocardial infarction; I34.0 Nonrheumatic mitral (valve) insufficiency; K21.9 Gastro-esophageal reflux disease without esophagitis; Z93.1 Gastrostomy status; Z20.828 Contact with and (suspected) exposure to other viral communicable diseases
CPT/HCPCS: 36415; 70030-TC; 71045; 74230; 83550; 83735; 84100; 85025; 87077; 87086; 93307; A4217; J1650; J1815